=== PATIENT | female | born 1950 | race Caucasian/White ===

== ENCOUNTER → 2017-03-15 | Outpatient (CLI) | payer OTHER ==
[~2017-03-15] MED LIST: CALC-5 PO; FLUT0.0529; MULT-506 PO; OXYC1TAB3 PO; VITAMIN B12 PO
--- NOTE | 2017-03-15 12:25 | MAMMOGRAPHY REPORT ---
BILATERAL DIGITAL SCREENING MAMMOGRAM TOMOSYNTHESIS WITH CAD: 03/15/2017 CLINICAL HISTORY: Routine screening. Patient has no complaints. TECHNIQUE: Breast tomosynthesis in addition to standard 2D mammography was performed. Current study was also evaluated with a Computer Aided Detection (CAD) system. COMPARISON: Comparison is made to exams dated: 03/12/2016 mammogram, 03/08/2015 mammogram, 03/07/2014 mammogram, 02/01/2013 mammogram, 12/28/2011 mammogram, and 04/23/2011 mammogram - [facility]. BREAST COMPOSITION: The tissue of both breasts is almost entirely fatty. FINDINGS: There are stable benign calcifications in both breasts. There are stable intramammary ly mph nodes in the right upper outer quadrant. Minimal vascular calcification. No suspicious mass, a rchitectural distortion or cluster of microcalcifications is seen. IMPRESSION: ACR BI-RADS CATEGORY 2: BENIGN There is no mammographic evidence of malignancy. A 1 year screening mammogram is recommended. The p atient will receive written notification of the results. Approximately 10% of breast cancers are not detected with mammography. A negative mammographic repor t should not delay biopsy if a clinically suggestive mass is present. Kenzie Santana M.D. ay/:03/15/2017 09:00:50 Frame Coverer: Gabriella JOYNER)(Cornelia), [facility] letter sent: Normal 1/2 BI-RADS Code: ACR BI-RADS Category 2: Benign
== END | disposition home or self-care (01) ==
LOC: C.MAMM 06:30
PROVIDERS: ATTEND Family Medicine
DX: Z12.31 Encounter for screening mammogram for malignant neoplasm of breast (principal)

== ENCOUNTER 2024-02-09 04:48 | Inpatient (IN) ==
--- NOTE | 2024-02-09 05:06 | Emergency Department Note ---
History of Present Illness General Chief complaint: Fall Stated complaint: FALL - BACK PAIN Time Seen by Provider: 02/09/24 05:02 History of Present Illness Maximum Pain Intensity: 10 This 73-year-old female presents ER complaining of mid back pain after she tripped and fell yesterday. Palpation makes it worse nothing makes it better. Patient denies head injury, neck pain, loss conscious, low back pain, numbness, tingling, localized weakness. She was able to walk. Home Medications Medication Instructions Recorded Confirmed Type omeprazole 40 mg capsule,delayed 40 mg PO DAILY 02/09/24 02/09/24 History release oxycodone-acetaminophen 7.5 mg-325 1 tab PO Q6H PRN Pain, Severe 02/09/24 02/09/24 History mg tablet valacyclovir 500 mg tablet 500 mg PO DAILY 02/09/24 02/09/24 History Allergies Allergy/AdvReac Type Severity Reaction Status Date / Time aspirin AdvReac Unknown AVOID DUE Verified 12/26/18 08:10 TO GASTRIC BYPASS NSAIDS (Non-Steroidal AdvReac Unknown AVOID DUE Verified 12/26/18 08:10 Anti-Inflamma TO GASTRIC BYPASS Past Med/Surg History Medical History Obesity (BMI 30-39.9) History of radius fracture CASTED Hx of compression fracture of spine 2010 NO SURGERY JUST REST Chronic back pain Osteoarthritis IBS (irritable bowel syndrome) Hx of pancreatitis 08/2018 Heart disease Surgical History History of esophagogastroduodenoscopy (EGD) History of colonoscopy History of tonsillectomy and adenoidectomy Hx of section History of cochlear implant LEFT EAR History of endoscopic sinus surgery Hx of rotator cuff surgery RIGHT X 3 Hx of hernia repair VENTRAL HERNIA REPAIR S/P gastric bypass Social History Smoking Status: Never smoker Second Hand Exposure: No; Do You Dip or Chew Tobacco: No; Tobacco Cessation Education Requested by Patient: No Hx Alcohol Use: No Hx Substance Use: Yes Last Used Substance: Days (ago) Substance Use Type Other:: Vodka Preferred Language: Bengali Communication Ability: Effective Nutrition Assistant Required: No Beliefs That Will Affect Care: None and Rastafarian Current Living Situation: Alone Current Living Situation Comment: patient lives independently at home, mobile home with 2-3 steps to door Other Information That Helps Us Care for You: No Feels Safe at Home: No Is there a partner from a previous relationship who is making you feel unsafe now?: No Any Concerns about Your Family Situation: No Would You Like to Speak to Someone About Your Situation: No Safety Concerns: Feels Safe At This Time Assistive Devices: Wheelchair Review of Systems A total of 10 systems reviewed and were otherwise negative Physical Exam Vital Signs Vital Signs - 24 hr 02/09/24 04:52 02/09/24 05:02 Temperature 36.6 C Temperature Source Temporal Artery Scan Pulse Rate 101 H 103 H Respiratory Rate 20 Respiratory Effort / Characteristics Non-Labored Spontaneous Respiratory Depth Normal Blood Pressure 208/90 H Blood Pressure Mean 129 Pulse Oximetry 100 Oxygen Delivery Method Room Air Sepsis Recent Fever Within 48 Hours No Sepsis New/Unexplained Change in Mental Status N/A Sepsis Action Taken by Nursing No Action Required VITALS: Vitals are noted on the nurse's note and reviewed by myself. Vital signs stable. GENERAL: Pleasant female, in no acute distress, nondiaphoretic, well-developed well-nourished. SKIN: Capillary reflex less than 2 seconds. HEENT: Normocephalic. PERRLA. EOMI. Nares patent. Mucous membranes moist. Neck is supple without nuchal rigidity. HEART: Regular rate and rhythm LUNGS: Clear to auscultation bilaterally without wheezes, rales or rhonchi. No retractions or accessory muscle use. ABDOMEN: Positive bowel sounds x 4. Normal tympanic percussion. Soft, nontender, without masses or organomegaly. Gerard sign negative. No guarding or rebound tenderness. no CVA tenderness MUSCULOSKELETAL: No gross musculoskeletal defects. Mid thoracic tenderness. No lumbar tenderness. 5 / 5 strength throughout. NEURO: Patient was alert and oriented to person place and time. No focal neurological deficits. Course Administered Medications Enoxaparin Sodium (Enoxaparin Inj 40 Mg/0.4 Ml Syr) 40 mg SQ DAILY DIANA Stop: 03/10/24 10:29 Last Admin: 02/09/24 11:20 Dose: 40 mg Documented By: ROZINA Hydromorphone HCl (Hydromorphone Inj 0.5 Mg/0.5 Ml Syr) 0.5 mg IV Q4H PRN PRN Reason: Severe Pain (Scale 7, 8, 9,10) Stop: 02/23/24 10:06 Last Admin: 02/09/24 20:03 Dose: 0.5 mg Documented By: Admin: 02/09/24 15:33 Dose: 0.5 mg Documented By: Admin: 02/09/24 11:12 Dose: 0.5 mg Documented By: ROZINA Sodium Chloride (Nss) 1,000 mls @ 80 mls/hr IV .[id number] [facility] Stop: 02/09/24 22:36 Last Infusion: 02/09/24 21:49 Dose: Infused Documented By: Admin: 02/09/24 11:13 Dose: 80 mls/hr Documented By: ROZINA Multivitamins/Minerals (Cerovite Adv Formula Tab) 1 tab PO QAM [facility] Stop: 03/10/24 08:59 Last Admin: 02/09/24 11:20 Dose: 1 tab Documented By: ROZINA Oxycodone/Acetaminophen (Oxycodone/Apap 7.5/325mg Tab) 1 tab PO Q6H PRN PRN Reason: Pain, Severe Stop: 02/23/24 10:06 Last Admin: 02/09/24 21:48 Dose: 1 tab Documented By: Admin: 02/09/24 13:49 Dose: 1 tab Documented By: ROZINA Valacyclovir HCl (Valacyclovir Hcl 500 Mg Tablet) 500 mg PO DAILY [facility] Stop: 03/10/24 10:29 Last Admin: 02/09/24 11:19 Dose: 500 mg Documented By: ROZINA Discontinued Medications Hydromorphone HCl (Hydromorphone Inj 0.5 Mg/0.5 Ml Syr) 0.25 mg IV NOW STA Stop: 02/09/24 05:44 Last Admin: 02/09/24 05:53 Dose: 0.25 mg Documented By: ROMIE Hydromorphone HCl (Hydromorphone Inj 0.5 Mg/0.5 Ml Syr) 0.5 mg IV NOW STA Stop: 02/09/24 07:15 Last Admin: 02/09/24 07:26 Dose: 0.5 mg Documented By: AMANDA Promethazine HCl (Phenergan) 12.5 mg in 50.5 mls @ 202 mls/hr IV NOW STA Stop: 02/09/24 07:32 Last Infusion: 02/09/24 08:27 Dose: Infused Documented By: Admin: 02/09/24 07:25 Dose: 202 mls/hr Documented By: AMANDA Miscellaneous (Patient's Height &/Or Weight Needed) 1 each N/A Q2H DIANA Stop: 03/10/24 10:29 Last Admin: 02/09/24 15:42 Dose: Not Given Documented By: Admin: 02/09/24 13:50 Dose: 1 each Documented By: Admin: 02/09/24 13:50 Dose: 1 each Documented By: ROZINA Ondansetron HCl (Ondansetron Inj 2 Mg/Ml 2 Ml Vial) 4 mg IV NOW STA Stop: 02/09/24 05:38 Last Admin: 02/09/24 05:53 Dose: 4 mg Documented By: ROMIE Oxycodone HCl (Oxycodone Hcl Ir 5 Mg Tab (Immediate Release)) 5 mg PO NOW STA Stop: 02/09/24 05:04 Last Admin: 02/09/24 05:07 Dose: 5 mg Documented By: ROMIE Medical Decision Making Medical Records Attestation: I reviewed the patient's medical records. Home Medications Current Medication List: was personally reviewed by me Laboratory Data 02/09/24 05:49 02/09/24 05:49 Lab Results 02/09/24 Range/Units 05:49 WBC 6.91 (4.8-10.8) K/ul RBC 4.05 L (4.20-5.40) M/uL Hgb 12.5 (12.0-16.0) g/dl Hct 37.6 (37.0-47.0) % MCV 92.8 (80.0-100.0) fL MCH 30.9 (25.0-34.0) pg MCHC 33.2 (32.0-36.0) g/dL RDW Std Deviation 45.8 (36.4-46.3) fL RDW Coeff of Harinder 13.4 (11.5-14.5) % Plt Count 237 (130-400) K/uL MPV 10.1 (9.4-12.4) fL Immature Gran % (Auto) 0.3 % Neut % (Auto) 65.1 % Lymph % (Auto) 23.2 % [place] % (Auto) 11.0 % Eos % (Auto) 0.0 % Baso % (Auto) 0.4 % Neut # (Auto) 4.50 (1.40-6.50) K/uL Lymph # (Auto) 1.60 (1.20-3.40) K/uL [place] # (Auto) 0.76 H (0.11-0.59) K/uL Eos # (Auto) 0.00 (0.00-0.50) K/uL Baso # (Auto) 0.03 (0.00-0.20) K/uL Immature Gran # (Auto) 0.02 (0.01-0.20) K/uL Sodium 130 L (136-145) mmol/L Potassium 4.8 (3.5-5.1) mmol/L Chloride 98 (98-107) mmol/L Carbon Dioxide 23 (21-32) mmol/L Anion Gap 9 (3-11) BUN 18 (6-23) mg/dl Creatinine 0.92 (0.6-1.2) mg/dl Est Cr Clr Drug Dosing Not Reportable Est GFR ( Amer) 72.6 ml/min Est GFR (Non-Af Amer) 62.6 ml/min BUN/Creatinine Ratio 19.6 (10-20) Glucose 110 H (70-99(Fasting)) mg/dl Calcium 8.7 (8.6-10.3) mg/dl Total Bilirubin 0.7 (0.2-1.0) mg/dl AST 33 (13-39) U/L ALT 25 (7-52) U/L Alkaline Phosphatase 76 (34-104) U/L Total Creatine Kinase 153 (26-192) U/L Total Protein 7.4 (6.0-8.3) gm/dl Albumin 3.8 (3.4-5.0) gm/dl Globulin 3.6 (2.5-4.0) gm/dl Albumin/Globulin Ratio 1.1 (0.9-2) Imaging Data Attestation: I personally reviewed and interpreted this imaging study as follows: Radiologist's Impression: Thoracic Spine CT 02/09/24 05:03 Exam(s): CT T SPINE EXAM: CT Thoracic Spine Without Intravenous Contrast CLINICAL HISTORY: Reason for exam: fall, mid back pain. TECHNIQUE: Axial computed tomography images of the thoracic spine without intravenous contrast. Automated exposure control was utilized for the study. A dose lowering technique was utilized adhering to the principles of ALARA. COMPARISON: No relevant prior studies available. FINDINGS: Vertebrae: There is some accentuated kyphosis present within the thoracic spine. There is mild spondylotic spurring at multiple levels. There is diffuse demineralization. No acute fracture. Discs/spinal canal/neural foramina: No acute findings. No spinal canal stenosis. Soft tissues: Unremarkable. Vasculature: There are vascular calcifications present. Lungs: Some calcified and noncalcified nodules within the inferior right lung on about image #245 and 253 of series 2. Mediastinum: There is small hiatal hernia and postsurgical changes to the stomach/bowel. IMPRESSION: Degenerative and chronic change, no acute fracture seen. Electronically signed by: Moise Wang MD 02/09/24 05:39 AM MDM Narrative Prior records/ancillary studies reviewed. Triage Nursing notes reviewed. Additional history obtained from family. The patient's history was concerning for back pain. Differential diagnosis: Etiologies such as musculoskeletal, disc herniation, fracture, aortic disease, metastatic disease, cord compression, discitis, infection, renal colic, gastrointestinal, acute exacerbation of chronic back pain, sciatica, cauda equina, as well as others were entertained. Physical findings: As above. No focal neurologic findings noted. ER treatment provided: Oxy IR, Dilaudid, Zofran On reassessment the patient felt better. Diagnostics interpreted by me: The labs Independently Interpreted by myself revealed no worrisome leukocytosis, stable H&H Imaging studies: CT as above Consultation: A consultation was placed with hospitalist. The case was discussed and diagnostics were reviewed. Patient will be evaluated by the. This appears to be consistent with severe mid back pain. CT was negative for acute fracture. Patient still moderate amount of pain. She did fall. she was neurovascularly and neurologically ntact. Medicine was consulted and case discussed. She will be admitted to the medical service for further evaluation and workup. By the evaluation outlined above emergent etiologies such as fracture, aortic disease, metastatic disease, infection, renal colic, gastrointestinal, cord compression, cauda equina, as well as others were deemed relatively unlikely. The pt informed about the findings as listed above. All questions were answered and pleased with the treatment. The chart was completed utilizing [employer] Speech voice recognition software. Grammatical errors, random word insertions, pronoun errors, and incomplete sentences are an occassional consequence of this system due to software limitations, ambient noise, and hardware issues. Any formal questions or concerns about the content, text, or information contained within the body of this dictation should be directly addressed to the physician bakery assistant for clarification. Impression & Plan Intractable back pain, Fall Discharge Plan Visit Data Chief Complaint: Fall Stated Complaint: FALL - BACK PAIN ED Provider: Nahomy Valdes ED Midlevel Provider: Brandy Reeder Discharge Problem: Intractable back pain, Fall Patient Disposition: Admitted As Inpatient Condition: Good Discharge Instructions Interventions: ED Discharge Assessment Last Done: 02/09/24 09:50
[2024-02-09] MEDS: oxyCODONE HCL IR 5 MG TAB (IMMEDIATE RELEASE) PO STA (05:07)
[2024-02-09] MEDS ORDERED: MoRPHine SULFATE 4 MG/ML 1 ML CARP\\VIAL IV PRN (05:37)
--- NOTE | 2024-02-09 05:40 | CT Scan Report ---
Exam(s): CT T SPINE EXAM: CT Thoracic Spine Without Intravenous Contrast CLINICAL HISTORY: Reason for exam: fall, mid back pain. TECHNIQUE: Axial computed tomography images of the thoracic spine without intravenous contrast. Automated exposure control was utilized for the study. A dose lowering technique was utilized adhering to the principles of ALARA. COMPARISON: No relevant prior studies available. FINDINGS: Vertebrae: There is some accentuated kyphosis present within the thoracic spine. There is mild spondylotic spurring at multiple levels. There is diffuse demineralization. No acute fracture. Discs/spinal canal/neural foramina: No acute findings. No spinal canal stenosis. Soft tissues: Unremarkable. Vasculature: There are vascular calcifications present. Lungs: Some calcified and noncalcified nodules within the inferior right lung on about image #245 and 253 of series 2. Mediastinum: There is small hiatal hernia and postsurgical changes to the stomach/bowel. IMPRESSION: Degenerative and chronic change, no acute fracture seen. Electronically signed by: Moise Wang MD 02/09/24 05:39 AM
[2024-02-09] MEDS: ONDANSETRON INJ 2 MG/ML 2 ML VIAL IV STA (05:53)
[2024-02-09] MEDS: HYDROmorphone INJ 0.5 MG/0.5 ML SYR IV STA ×3 (05:53→23:21)
[2024-02-09 06:23] LABS: Alanine Aminotransferase 25 U/L (7-52); Albumin Globulin Ratio 1.1 (0.9-2); Albumin Level 3.8 gm/dl (3.4-5.0); Alkaline Phosphatase 76 U/L (34-104); Anion Gap 9 (3-11); Aspartate Aminotransferase 33 U/L (13-39); BUN Creatinine Ratio 19.6 (10-20); Bilirubin,Total 0.7 mg/dl (0.2-1.0); Blood Urea Nitrogen 18 mg/dl (6-23); Calcium 8.7 mg/dl (8.6-10.3); Carbon Dioxide 23 mmol/L (21-32); Chloride 98 mmol/L (98-107); Est GFR (African American) 72.6 ml/min; Est GFR (Non-African American) 62.6 ml/min; Globulin 3.6 gm/dl (2.5-4.0); Glucose 110 mg/dl (70-99(Fasting)); Potassium 4.8 mmol/L (3.5-5.1); Sodium 130 mmol/L (136-145); Total Protein 7.4 gm/dl (6.0-8.3)
[2024-02-09 06:24] LABS: Basophils # (auto) 0.03 K/uL (0.00-0.20); Basophils % (auto) 0.4 %; Hematocrit (blood only) 37.6 % (37.0-47.0); Hemoglobin 12.5 g/dl (12.0-16.0); Immature Granulocytes # (auto) 0.02 K/uL (0.01-0.20); Immature Granulocytes % (auto) 0.3 %; Lymphocytes % (auto) 23.2 %; Mean Corpuscular Hemoglobin 30.9 pg (25.0-34.0); Mean Corpuscular Hgb Conc 33.2 g/dL (32.0-36.0); Mean Corpuscular Volume 92.8 fL (80.0-100.0); Mean Platelet Volume 10.1 fL (9.4-12.4); Monocytes # (auto) 0.76 K/uL (0.11-0.59); Neutrophils % (auto) 65.1 %; Platelet Count 237 K/uL (130-400); RDW Coefficient of Variation 13.4 % (11.5-14.5); RDW Standard Deviation 45.8 fL (36.4-46.3); Red Blood Count 4.05 M/uL (4.20-5.40); White Blood Count 6.91 K/ul (4.8-10.8)
[2024-02-09] MEDS ORDERED: PROMETHAZINE HCL 12.5 MG in SODIUM CHLORIDE 0.9% 50 ML IV STA (07:14)
[2024-02-09] MEDS: PROMETHAZINE 12.5 MG/50.5 ML BAG IV STA (07:25)
--- NOTE | 2024-02-09 07:47 | History & Physical Report ---
Date of Service February 09, 2024 Assessment & Plan (1) Fall: Plan: 73-year-old female with past medical history significant for atrophy of pancreas, chronic rhinitis, obesity, GERD, degeneration of cervical disc, osteoporosis, iron deficiency anemia, status post bariatric surgery, history of COVID comes because of fall and mid lower back pain. Patient states she fell while going to bathroom yesterday in the morning 3:30 AM States she fell backward. Did not hit her head. No loss of consciousness. But she could not able to get up and she stayed on the floor for 6 hours. Later she could able to slowly crawled through her chair and sat in the chair. She thought the pain will get better but the pain was getting more severe so she came to the ER. CT of the thoracic spine is okay. Requesting for pain medications. Denies any headache. No dizziness. No blurred visions. No earache or runny nose. No sore throat. No cough. No fevers. No chest pain or shortness of breath. Feeling somewhat nauseous. No abdominal pain. Somewhat constipated. No incontinence of bowel or bladder. Sensations okay in lower extremity. Hemodynamics are okay. Fall Severe back pain Ambulatory dysfunction CT thoracic spine okay Pain control PT OT GERD PPI. DVT prophylaxis Lovenox Disposition Observation medical floor Full code History of Present Illness Chief Complaint: S/p fall, mid back pain Primary Care Provider: Marc Munguia MD 73-year-old female with past medical history significant for atrophy of pancreas, chronic rhinitis, obesity, GERD, degeneration of cervical disc, osteoporosis, iron deficiency anemia, status post bariatric surgery, history of COVID comes because of fall and mid lower back pain. Patient states she fell while going to bathroom yesterday in the morning 3:30 AM States she fell backward. Did not hit her head. No loss of consciousness. But she could not able to get up and she stayed on the floor for 6 hours. Later she could able to slowly crawled through her chair and sat in the chair. She thought the pain will get better but the pain was getting more severe so she came to the ER. CT of the thoracic spine is okay. Requesting for pain medications. Denies any headache. No dizziness. No blurred visions. No earache or runny nose. No sor e throat. No cough. No fevers. No chest pain or shortness of breath. Feeling somewhat nauseous. No abdominal pain. Somewhat constipated. No incontinence of bowel or bladder. Sensations okay in lower extremity. Hemodynamics are okay. Past medical history. As mentioned above. Past surgical history. . Colonoscopy. EGD. EGD with endoscopic ultrasound. Gastric bypass surgery. Incisional hernia repair. Laparoscopic cholecystectomy. Ligation of oviducts. Repair of ruptured rotator cuff right- side. Sinus surgery. Social history. No smoking. No alcohol use. No drug use. Family history. Mother has arthritis. Diabetes. CABG. Hyperlipidemia. Hypertension. Obesity. Father had prostate cancer. Small intestine cancer. Hyperlipidemia. Hypertension. Son has gout. Migraines. Sister has asthma. Allergies Allergy/AdvReac Type Severity Reaction Status Date / Time aspirin AdvReac Unknown AVOID DUE Verified 12/26/18 08:10 TO GASTRIC BYPASS NSAIDS (Non-Steroidal AdvReac Unknown AVOID DUE Verified 12/26/18 08:10 Anti-Inflamma TO GASTRIC BYPASS Home Medications Medication Instructions Recorded Confirmed Type omeprazole 40 mg capsule,delayed 40 mg PO DAILY 02/09/24 02/09/24 History release oxycodone-acetaminophen 7.5 mg-325 1 tab PO Q6H PRN Pain, Severe 02/09/24 02/09/24 History mg tablet valacyclovir 500 mg tablet 500 mg PO DAILY 02/09/24 02/09/24 History Past Med/Surg History Medical History Obesity (BMI 30-39.9) History of radius fracture CASTED Hx of compression fracture of spine 2010 NO SURGERY JUST REST Chronic back pain Osteoarthritis IBS (irritable bowel syndrome) Hx of pancreatitis 08/2018 Heart disease Surgical History History of esophagogastroduodenoscopy (EGD) History of colonoscopy History of tonsillectomy and adenoidectomy Hx of section History of cochlear implant LEFT EAR History of endoscopic sinus surgery Hx of rotator cuff surgery RIGHT X 3 Hx of hernia repair VENTRAL HERNIA REPAIR S/P gastric bypass Social History Smoking Status: Never smoker Second Hand Exposure: No; Do You Dip or Chew Tobacco: No; Hx Alcohol Use: No Hx Substance Use: No Preferred Language: Bengali Communication Ability: Effective Optometric Aide Required: No Beliefs That Will Affect Care: None Current Living Situation: Alone Current Living Situation Comment: patient lives independently at home, mobile home with 2-3 steps to door Feels Safe at Home: Yes Assistive Devices: Contacts, Denture - Upper, Denture - Lower and Glasses Review of Systems Review of Systems: All systems reviewed & are unremarkable except as noted in HPI & below Physical Exam Physical Exam: General- Not in distress Head- atraumatic Eyes- PERRL. ENT- oropharynx clear Neck- supple, no JVD. Lungs- clear to auscultation no wheezing or crackles. Heart- regular rhythm; no murmur, no gallop. Abdomen- normal bowel sounds, soft, nontender, no distension. Extremities- no pretibial edema, no erythema seen. Musculoskeletal b/l SLR test negative. Neuro- alert, oriented ; PERRL, no facial palsy; no dysarthria; moves extremities. Skin- warm & dry Results & Data Results & Data Vital Signs (Past 12 Hours) Vital Signs Temp Pulse Resp BP Pulse Ox O2 Del Method 02/09/24 05:02 103 H 02/09/24 04:52 36.6 C 101 H 20 208/90 H 100 Room Air Diagnostic Findings Laboratory Results WBC 6.91 K/ul (4.8-10.8) 02/09/24 05:49 RBC 4.05 M/uL (4.20-5.40) L 02/09/24 05:49 Hgb 12.5 g/dl (12.0-16.0) 02/09/24 05:49 Hct 37.6 % (37.0-47.0) 02/09/24 05:49 MCV 92.8 fL (80.0-100.0) 02/09/24 05:49 MCH 30.9 pg (25.0-34.0) 02/09/24 05:49 MCHC 33.2 g/dL (32.0-36.0) 02/09/24 05:49 RDW Std Deviation 45.8 fL (36.4-46.3) 02/09/24 05:49 RDW Coeff of Harinder 13.4 % (11.5-14.5) 02/09/24 05:49 Plt Count 237 K/uL (130-400) 02/09/24 05:49 MPV 10.1 fL (9.4-12.4) 02/09/24 05:49 Immature Gran % (Auto) 0.3 % 02/09/24 05:49 Neut % (Auto) 65.1 % 02/09/24 05:49 Lymph % (Auto) 23.2 % 02/09/24 05:49 Will % (Auto) 11.0 % 02/09/24 05:49 Eos % (Auto) 0.0 % 02/09/24 05:49 Baso % (Auto) 0.4 % 02/09/24 05:49 Neut # (Auto) 4.50 K/uL (1.40-6.50) 02/09/24 05:49 Lymph # (Auto) 1.60 K/uL (1.20-3.40) 02/09/24 05:49 Will # (Auto) 0.76 K/uL (0.11-0.59) H 02/09/24 05:49 Eos # (Auto) 0.00 K/uL (0.00-0.50) 02/09/24 05:49 Baso # (Auto) 0.03 K/uL (0.00-0.20) 02/09/24 05:49 Immature Gran # (Auto) 0.02 K/uL (0.01-0.20) 02/09/24 05:49 Sodium 130 mmol/L (136-145) L 02/09/24 05:49 Potassium 4.8 mmol/L (3.5-5.1) 02/09/24 05:49 Chloride 98 mmol/L (98-107) 02/09/24 05:49 Carbon Dioxide 23 mmol/L (21-32) 02/09/24 05:49 Anion Gap 9 (3-11) 02/09/24 05:49 BUN 18 mg/dl (6-23) 02/09/24 05:49 Creatinine 0.92 mg/dl (0.6-1.2) 02/09/24 05:49 Est Cr Clr Drug Dosing Not Reportable 02/09/24 05:49 Est GFR ( Amer) 72.6 ml/min 02/09/24 05:49 Est GFR (Non-Af Amer) 62.6 ml/min 02/09/24 05:49 BUN/Creatinine Ratio 19.6 (10-20) 02/09/24 05:49 Glucose 110 mg/dl (70-99(Fasting)) H 02/09/24 05:49 Calcium 8.7 mg/dl (8.6-10.3) 02/09/24 05:49 Total Bilirubin 0.7 mg/dl (0.2-1.0) 02/09/24 05:49 AST 33 U/L (13-39) 02/09/24 05:49 ALT 25 U/L (7-52) 02/09/24 05:49 Alkaline Phosphatase 76 U/L (34-104) 02/09/24 05:49 Total Protein 7.4 gm/dl (6.0-8.3) 02/09/24 05:49 Albumin 3.8 gm/dl (3.4-5.0) 02/09/24 05:49 Globulin 3.6 gm/dl (2.5-4.0) 02/09/24 05:49 Albumin/Globulin Ratio 1.1 (0.9-2) 02/09/24 05:[address] 02/09/24 05:03 Exam(s): CT T SPINE EXAM: CT Thoracic Spine Without Intravenous Contrast CLINICAL HISTORY: Reason for exam: fall, mid back pain. TECHNIQUE: Axial computed tomography images of the thoracic spine without intravenous contrast. Automated exposure control was utilized for the study. A dose lowering technique was utilized adhering to the principles of ALARA. COMPARISON: No relevant prior studies available. FINDINGS: Vertebrae: There is some accentuated kyphosis present within the thoracic spine. There is mild spondylotic spurring at multiple levels. There is diffuse demineralization. No acute fracture. Discs/spinal canal/neural foramina: No acute findings. No spinal canal stenosis. Soft tissues: Unremarkable. Vasculature: There are vascular calcifications present. Lungs: Some calcified and noncalcified nodules within the inferior right lung on about image #245 and 253 of series 2. Mediastinum: There is small hiatal hernia and postsurgical changes to the stomach/bowel. IMPRESSION: Degenerative and chronic change, no acute fracture seen. Electronically signed by: Moise Wang MD 02/09/24 05:39 AM Code Status & VTE Plan VTE Prophylaxis Plan VTE Prophylaxis will be ordered: Yes
[2024-02-09 09:01] LABS: Creatine Kinase 153 U/L (26-192)
[2024-02-09] MEDS: HYDROmorphone INJ 0.5 MG/0.5 ML SYR IV PRN (11:12)
[2024-02-09] MEDS: SODIUM CHLORIDE 0.9% 1,000 ML IV SCH (11:13)
[2024-02-09] MEDS: valACYclovir HCL 500 MG TABLET PO SCH (11:19)
[2024-02-09] MEDS: CEROVITE ADV FORMULA TAB PO SCH (11:20)
[2024-02-09] MEDS: ENOXAPARIN INJ 40 MG/0.4 ML SYR SQ SCH (11:20)
[2024-02-09] MEDS: oxyCODONE/APAP 7.5/325MG TAB PO PRN (13:49)
[2024-02-09] MEDS: Patient's HEIGHT &/or WEIGHT Needed SCH (13:50)
--- OUTSIDE RECORDS SUMMARY | 2024-02-09 14:27 | External Medical Summary | Summary of Care ---
Author Name Unknown Organization [facility] [address] [address] Phone [phone] Care Team Providers Care Station Examiner Name Role Phone Marc Munguia MD Primary Care Provider + Reason for Visit * Reason Comments Outpatient Testing Encounter Details Date Type Department Care Team (Late st Contact Info) Description 02/04/2024 1:30 PM EDT Laboratory Laboratory, [facility] [address] [facility] [place] [phone] BarberArabella alcazar [facility] [address] [facility] [address] BRBPR (bright red blood per rectum); H/O gastric bypass; Spinal stenosis of lumbar region, unspecified whether neurogenic claudication present Allergies Active Allergy Reactions Criticality Noted Date Comments Aspirin 04/10/2009 Not able to tolerate following gastric bypass surgery 2003 Morphine Abdominal pain,Diarrhea,Flushing,N ausea/vomiting 12/12/2020 Nsaids 04/10/2009 Unable to tolerate following gastric bypass surgery 2003 documented as of this encounter (statuses as of 02/04/2024) Medications Medication Sig Dispensed Refills Start Date End Date Status MULTIPLE VITAMINS/WOMENS PO TABS 2 daily 0 Active Cholecalciferol (VITAMIN D) 2000 UNITS Tablet Take 2,000 Units by mouth daily. 0 Active Cyanocobalamin (VITAMIN B12) 100 MCG TABS Take by mouth. 0 Active diphenhydrAMINE HCl 25 MG Oral Capsule Take 1 Capsule by mouth every 6 hours as needed for Itching. 0 Active Dicyclomine HCl 10 MG Oral Capsule (Bentyl) Take 1 Cap by mouth 4 times a day as needed (stomach cramp). For abdominal pain 120 Cap 5 12/12/2020 Active Diclofenac Sodium 1 % External Gel (Voltaren) APPLY 4 GM TOPICALLY TO AFFECTED AREA(S) FOUR TIMES A DAY NEEDED FOR OTHER (MUSCLE SORENESS) 900 g 3 04/30/2023 04/29/2024 Active valACYclovir HCl 500 MG Oral Tablet (Valtrex)Indications :Recurrent cold sores TAKE 1 TABLET BY MOUTH EVERY MORNING FOR COLD SORES 100 Tablet 3 04/30/2023 04/29/2024 Active Omeprazole 40 MG Oral Capsule Delayed Release (PriLOSEC)Indication s:Chronic gastritis without bleeding, unspecified gastritis type TAKE ONE CAPSULE BY MOUTH EVERY DAY 1 HOUR BEFORE THE FIRST MEAL OF THE DAY 90 Capsule 3 02/02/2023 03/04/2024 Active oxyCODONE-Acetaminop hen 7.5-325 MG Oral TabletIndications:De generation of cervical intervertebral disc,MEDICATION USE AGREEMENT,DDD (degenerative disc disease), lumbar,Bilateral hip pain Take 1 Tablet by mouth every 6 hours as needed for Pain, Severe. 120 Tablet 0 01/17/2024 Active Ondansetron HCl 4 MG Oral Tablet (Zofran) TAKE 1 TABLET BY MOUTH EVERY 6 HOURS NEEDED FOR NAUSEA 90 Tablet 2 01/30/2024 01/29/2025 Active Hydrocortisone 2.5 % External Cream Administer into the rectum 2 times a day. For 2 weeks 28 g 0 02/04/2024 Active documented as of this encounter (statuses as of 02/04/2024) Active Problems Problem Noted Date Diagnosed Date Body mass index (BMI) of 40.0 to 44.9 in adult 0 02/04/2024 Atrophy of pancreas 02/04/2024 History of 2019 novel coronavirus disease (COVID -19) 12/18/2022 Obesity, morbid (more than 1 00 lbs over ideal weight or BMI > 40) 12/18/2022 Iron deficiency anemia 04/04/2019 Gastroesophageal reflux disease without esophagi tis 03/22/2019 Chronic rhinitis 10/05/2017 Age-related osteoporosis wit hout current pathological fracture 03/17/2016 Overview: 02/28 DexA -2.7. +mult fracture. Did prolia treatments for a time H/O gastric bypass 03/06/2016 Overview: Duplicate. Well adult exam 03/06/2016 Overview: ELECTS MAMMO Q2y. Daughter-Haley Navarro. 04/02 refer IV iron. 01/02 EGD & colonoscopy WNL path pend: mild chronic gastritis. 05/01 HIROC_start Prolia MEDICATION USE AGREEMENT 09/16/2012 Overview: For chronic pain meds for vertebral fx., AVN hip Lumbar spinal stenosis 06/29/2011 Overview: Lumbar BMI 35-39 ISOLATED (SEE ACTUAL BMI) 04/28/2010 Overview: Per Obesity Protocol, #19 Degeneration of cervical intervertebral disc Bariatric surgery status documented as of this encounter (statuses as of 02/04/2024) Resolved Problems Problem Noted Date Diagnosed Date Resolved Date Body mass index (BMI) of 40. 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 History of pathological fracture of vertebra 1 03/18/2020 Overview: T12, L2 and L5 Historical. Fracture of forearm, closed 06/13/2011 08/03/2011 Overview: Seeing Dr. Linares for tx Chronic pain syndrome 2009 Overview: Saw Dr. 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 Backache 09/14/2018 Pain in joint involving forearm 10/05/2017 documented as of this encounter (statuses as of 02/04/2024) Immunizations Name Administration Dates Next Due COVID-19 mRNA, LNP-s, No Pre serve, 2-Dose Series (Moderna) 01/22/2021,12/25/2020 COVID-19, mRNA, LNP-s, PF, B ooster, 100mcg/0.5mg (Moderna) 10/14/2021 Pneumococcal Conjugate Vacc, 13 Valent (Prevnar) 10/05/2017 Pneumococcal Polysaccharide PPV23 (Pneumovax) 10/14/2018 Season Influenza, Quad, PF, Adjuvanted, 65+ Yrs, IM (FLUAD) 07/24/2020 Seasonal Influenza, PF, 6 M & above, IM , (FluLaval or Fluzone) 07/14/2019,07/25/2018 Seasonal Influenza, Quadriva lent Hd (Fluzone Hd) 07/27/2023,07/27/2022,07/22/2021 Seasonal Influenza, Quadriva lent, No Preserve, IM 07/27/2017 Seasonal Influenza, Split, I IV3, With Preserve, Inj 08/06/2016,08/14/2015,08/13/2014,09/15,08/26/2012,08/10/2011,08/15/2010 ,09/02/2009 TDAP (age 10 and older)(Boostrix) 04/02/2017 TDAP (age 11 and older)(Adacel) 06/19/2009 Varicella Zoster Vaccine (Adult) 03/02/2014 Zoster Vaccine Recombinant (Shingrix) 09/23/2018 ,06/15/2018 documented as of this encounter Social History Tobacco Use Types Packs/Day Years Used Date Smoking Tobacco: Never Smokeless Tobacco: Never Alcohol Use Standard Drinks/Week Comments No 0 (1 standard drink = 0.6 oz pur e alcohol) PHQ-2 Answer Date Recorded PHQ Adult Total Score 0 12/18/2022 Hunger Vital Sign Answer Date Recorded Within the past 12 months, y ou worried that your food would run out before you got the money to buy more. Never true 12/14/19 23 Within the past 12 months, t he food you bought just didn't last and you didn't have money to get more. Never true 12/14/2022 Sex and Gender Information Value Date Recorded Sex Assigned at Female 04/02/2022 10:31 AM EDT Gender Identity Female 04/02/2022 10:31 AM EDT Sexual Orientation Straight 04/02/2022 10 :31 AM EDT Job Start Date Occupation Industry Not on file Not on file Not on file documented as of this encounter Plan of Treatment Upcoming Encounters Date Type Department Care Team (Late st Contact Info) Description 02/10/2024 1:00 PM EDT Imaging Radiology [facility] [facility] [address] [place] [address] 02/16/2024 11:00 AM EDT Office Visit General Surgery, [facility] [address] [place] [address] Isaac Sal MD [address] [place] [address] 02/07/2025 12:00 PM EDT Office Visit Family Practice [facility] [address] [place] [id number] Marc Munguia MD [address] [address] Pending Results Name Type Priority Associated Diagnoses Date /Time CBC WITH WBC DIFFERENTIAL AND ANEMIA REFLEX WORKUP Lab Routine BRBPR (bright red blood per rectum) 02/04/2024 1:35 PM EDT 25-HYDROXY VITAMIN D Lab Routine H/O gastric bypass 02/04/2024 1:35 PM EDT ZINC Lab Routine H/O gastric bypass 02/04/2024 1:35 PM EDT IRON SCREEN, INCLUDING TIBC Lab Routine H/O gastric bypass 02/04/2024 1:35 PM EDT FERRITIN Lab Routine H/O gastric bypass 02/04/2024 1:35 PM EDT ANEMIA CBC Lab Routine BRBPR (bright red blood per rectum) 02/04/2024 1:35 PM EDT DIFFERENTIAL, AUTOMATED Lab Routine BRBPR (bright red blood per rectum) 02/04/2024 1:35 PM EDT ANEMIA REFLEX CHEMISTRY HOLD Lab Routine BRBPR (bright red blood per rectum) 02/04/2024 1:35 PM EDT PAIN MANAGEMENT DRUG PANEL, URINE W/ INTERPRETATION Lab Routine Spinal stenosis of lumbar region, unspecified whether neurogenic claudication present 02/04/2024 1:37 PM EDT Scheduled Procedures Name Priority Associated Diagnoses Date/Ti me COLONOSCOPY FLEXIBLE PROXIMA L DIAGNOSTIC Recall Encounter for screening colonoscopy Health Maintenance Due Date Last Done Comments Cologuard 1997 Fecal Occult Blood Test 1997 Sigmoidoscopy 1997 DXA Scan 05/05/2020 05/05/2018, 03/12/2016 COVID-19 Vaccine ( season) 2023 10/14/2021, 01/22/2021, 12/25/2020 Mammogram 05/10/2024 05/10/2023, 04/16, 04/15/2021, Additional history exists Depression Screening 02/03/2025 02/04/2024, 04/02/2017 (Declined) DTaP,Tdap,and Td Vaccines (3 - Td or Tdap) 04/02/2027 04/02/2017, 06/19/2009 Lipid Panel 07/16/2027 07/16/2022, 02/14, 10/22/2011, Additional history exists Colonoscopy 12/17/2027 12/17/2017, 12/2017, 11/25/2007 Colorectal Cancer Screening 12/17/2027 Zoster Vaccines Completed 09/23/2018, 11/2017, 03/02/2014 Pneumococcal Vaccine: 65+ Years Completed 10/14/2018, 10/05/2017 VITAMIN D LEVEL ONCE IN A LIFETIME-USE SMARTSET# [id number] Completed 07/16/2022, 09/22/2019, 03/22/2019, Additional history exists Influenza Vaccine (FLU shot) Completed 07/27/2023, 07/27/2022, 07/22/2021, Additional history exists Albumin/Creatinine Ratio Discontinued 023, 10/02/2022, 03/22/2019 GARDASIL-HPV IMMUNIZATION SERIES Aged Out No longer eligible based on patient's age to complete this topic Hepatitis B Aged Out No longer eligi ble based on patient's age to complete this topic MENINGOCOCCAL (MENACTRA/MENVEO) Aged Out No longer eligible based on patient's age to complete this topic documented as of this encounter Medical Devices Not on filedocumented as of this encounter Visit Diagnoses Diagnosis BRBPR (bright red blood per rectum) Hemorrhage of rectum and anus H/O gastric bypass Bariatric surgery status Spinal stenosis of lumbar region, unspecified whether neurogenic claudication present documented in this encounter Care Teams Station Examiner Relationship Specialty Start Date End Date Marc Munguia MD [address] [facility] [place] [address] PCP - General Family Medicine 03/06/16 documented as of this encounter
--- OUTSIDE RECORDS SUMMARY | 2024-02-09 14:27 | External Medical Summary | Summary of Care ---
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 Name Role Phone Marc Munguia MD Primary Care Provider + Reason for Referral * Evaluate & Treat - Unlimited Visits (Within 10 days (routine)) - Authorized Specialty Diagnoses / Procedures Referred By Bela moreno Referred To Contact General Surgery Diagnoses Chronic RLQ pain Marc Munguia MD [address] [place] [address] Sebas Mckeon MD [address] [place] [address] Referral ID Status Reason Start Date Expiration Date Visits Requested Visits Authorized [id number] Authorized Specialty Services Required 02/04/2024 999 999 Question Answer Referral Priority Within 10 days (routine) Where should this appointment be scheduled? [facility] What condition is the patient being seen for? General Surgery Conditions What condition is the patient being seen for? Hernia (excluding Hiatal) Comments RLQ twisting pain, CT ordered, unclear if new hernia/ ?adhesions, pleaseeval/tx. * Precert (Within 24 hrs (call dept; emergent)) - Pending Review Specialty Diagnoses / Procedures Referred By Bela moreno Referred To Contact Radiology Diagnoses Chronic RLQ pain Procedures CT ABD/PELVIS W IV AND W ORAL CONTRAST Marc Munguia MD [address] [place] [address] Referral ID Status Reason Start Date Expiration Date V isits Requested Visits Authorized [id number] Pending Review 02/04/2024 999 999 Reason for Visit * Reason Comments Physical-Exam Yearly physical Encounter Details Date Type Department Care Team (Late st Contact Info) Description 02/04/2024 12:20 PM EDT Office Visit [facility] [address] [place] [address] Marc Munguia MD [address] [place] [id number] Well adult exam*; Risk and functional assessment; Obesity, morbid (more than 100 lbs over ideal weight or BMI > 40) ([facility]); Body mass index (BMI) of 40.0 to 44.9 in adult ([facility]); Gastroesophageal reflux disease without esophagitis; Atrophy of pancreas; Age-related osteoporosis without current pathological fracture; BRBPR (bright red blood per rectum); H/O gastric bypass; Chronic RLQ pain; Spinal stenosis of lumbar region, unspecified whether neurogenic claudication present; Palpitations Allergies Active Allergy Reactions Criticality Noted Date Comments Aspirin 04/10/2009 Not able to tolerate following gastric bypass surgery 2003 Morphine Abdominal pain,Diarrhea,Flushing,N ausea/vomiting 12/12/2020 Nsaids 04/10/2009 Unable to tolerate following gastric bypass surgery 2004 documented as of this encounter (statuses as [...] OTHER (MUSCLE SORENESS) 900 g 3 04/30/2023 4 Active valACYclovir HCl 500 MG Oral Tablet (Valtrex)Indication s:Recurrent cold sores TAKE 1 TABLET BY MOUTH EVERY MORNING FOR COLD SORES 100 Tablet 3 04/30/2023 4 Active Omeprazole 40 MG Oral Capsule Delayed Release (PriLOSEC)Indicatio ns:Chronic gastritis without bleeding, unspecified gastritis type TAKE ONE CAPSULE BY MOUTH EVERY DAY 1 HOUR BEFORE THE FIRST MEAL OF THE DAY 90 Capsule 3 02/02/2023 4 Active oxyCODONE-Acetamino phen 7.5-325 MG Oral TabletIndications:D egeneration of cervical intervertebral disc,MEDICATION USE AGREEMENT,DDD (degenerative disc disease), lumbar,Bilateral hip pain Take 1 Tablet by mouth every 6 hours as needed for Pain, Severe. 120 Tablet 0 01/17/2024 Active Ondansetron HCl 4 MG Oral Tablet (Zofran) TAKE 1 TABLET BY MOUTH EVERY 6 HOURS NEEDED FOR NAUSEA 90 Tablet 2 01/30/2024 5 Active Hydrocortisone 2.5 % External Cream Administer into the rectum 2 times a day. For 2 weeks 28 g 0 02/04/2024 Active fluticasone (FLONASE) 50 MCG/ACT nasal sprayIndications:Ch ronic rhinitis USE TWO SPRAY(S) IN EACH NOSTRIL ONCE DAILY 16 g 11 06/03/2017 4 Discontinue d(Medicatio n List Clean Up) documented as of this encounter (statuses as [...] Date Smoking Tobacco: Never Smokeless Tobacco: Never Tobacco Cessation:Counseling Given: Not Answered Alcohol Use Standard Drinks/Week Comments No 0 [...] on file documented as of this encounter Last Filed Vital Signs Vital Sign Reading Time Taken Comments Blood Pressure 110/72 02/04/2024 12:55 PM EDT Pulse 65 02/04/2024 12:40 PM EDT Temperature - - Respiratory Rate 18 02/04/2024 12:40 PM EDT Oxygen Saturation 99% 02/04/2024 12:40 PM EDT Inhaled Oxygen Concentration - - Weight 118.6 kg (261 lb 8 oz) 02/04/2024 12:40 P M EDT Height 167 cm (5' 5.75") 02/04/2024 12:40 PM EDT Body Mass Index 42.53 02/04/2024 12:40 PM EDT documented in this encounter Patient Instructions * Patient Instructions* Mita Faustin LPN - 02/04/2024 12:39 PM EDT Patient Instructions - Fall Prevention (This education is for all patients over 65 regardless of symptoms) Remember to take your current medications as prescribed. In order to prevent falls, you are encouraged to: Exercise Utilize assistive/adaptive devices Avoid multifocal lenses when walking Avoid hazards in home Maintain a regular toileting schedule Any questions please contact our office. Preventing Falls in the Home (This education is for all patients over 65 regardless of symptoms) As you get older, falls are more likely. Thats because your reaction time slows. Your muscles and joints may also get stiffer, making them less flexible. Illness, medications, and vision changes can also affect your balance. A fall could leave you unable to live on your own. To make your home safer, follow these tips: Floors Put nonskid pads under area rugs Remove throw rugs Replace worn floor coverings Tack carpets firmly to each step on carpeted stairs. Put nonskid strips on the edges of uncarpeted stairs Keep floors and stairs free of clutter and cords Arrange furniture so there are clear pathways Clean up any spills right away Bathrooms Install grab bars in the tub or shower Apply nonskid strips or put a nonskid rubber mat in the tub or shower Sit on a bath chair to bathe Use bathmats with nonskid backing Lighting Keep a flashlight in each room Put a nightlight along the pathway between the bedroom and the bathroom Pearl Patient Education Copyright 2008 - 2010 Pearl except where otherwise noted Preventing Falls: Exercises to Improve Balance, Flexibility, Strength, and Staying Power (This education is for all patients over 65 regardless of symptoms) Certain types of exercises may help make you less likely to fall. Try the ones below. Or do other exercises that your healthcare provider suggests. Depending on your health, you may need to start slowly. Dont let that stop you. Even small amounts of exercise can help you. Be sure to talk to yourhealthcare provider before starting any exercise program. Improve Balance Many types of exercise can help improve balance. Alfonso chi and yoga are good examples. Heres another one to try. You can do it anytime and almost anywhere. Stand next to a counter or solid support. Push yourself up onto your tiptoes. Hold for 5 seconds. If you start to lose your balance, hold on to the counter. Rest and repeat 5 times. Work up to holding for 20 to 30 seconds, if you can. Increase Flexibility Being more flexible makes it easier for you to move around safely. Try exercises like the seated hamstring stretch. Sit in a chair and put one foot on a stool. Straighten your leg and reach with both hands down either side of your leg. Reach as far down your leg as you can. Hold for about 20 seconds. Go back to the starting position. Then repeat 5 times. Switch legs. Build Strength Resistance exercises help build strength. You can do them without equipment. Or you can use weights, elastic bands, or special machines. One such exercise is called the biceps curl. You can hold a 1 pound weight or even a can of soup. Do this exercise at least 3 times a week. Strive for everyday. Sit up straight in a chair. Keep your elbow close to your body and your wrist straight. Bend your arm, moving your hand up to your shoulder. Then slowly lower your arm. Repeat 5 times. Switch to the other arm. Build Your Staying Power Aerobic exercises make your heart and lungs stronger so you can keep moving longer. Walking and swimming are two of the best types of exercises you can do. Using a stationary bike is great, too. Find an aerobic exercise that you enjoy. Start slowly and build up. Even 5 minutes is helpful. Aimfor a goal of 30 minutes, at least 3 times a week. You dont have to do 30 minutes in one session. Break it up and walk a little throughout the day. More Helpful Tips Start easy. Slowly work up to doing more. Talk with your healthcare provider about the best exercises for you. Call senior centers or health clubs about exercise programs. If needed, have a family member watch you walk every so often to check your stability. Exercise with a friend. Choose an activity you both enjoy. Try exercises that you can do anytime, anywhere. Here are two examples. Have someone with you when you first try these: Practice walking by placing one foot right in front of the other. Stand up and sit down 10 times. Repeat this throughout the day. Pearl Patient Education Copyright 2008 - 2010 Pearl except where otherwise noted. Preventing Falls: Moving Safely Using a Cane or Walker (This education is for all patients over 65 regardless of symptoms) Keep the cane away from your feet so you dont trip. A walking aid, such as a cane or walker, can help you stay more independent and avoid falls. Remember to keep your walking aid within easy reach when youre in a chair or in bed. And learn how to use it safely so you dont injure yourself. Using a Cane If you have a stronger side, hold the cane on that side. Get your balance. Move the cane and your weaker leg forward. Support your weight on both the cane and your weaker side. Step with your stronger leg. Start again from step 1. If youre using a folding walker, be sure you know how to lock it open. Check that its locked open before each use. Using a Walker Roll the walker (or lift it, if youre using one without wheels) forward about 12 inches. Step forward with your weaker leg first. Use the walker to help keep your balance. Bring your other foot forward to the center of the walker. Start again from step 1. Helpful Tips Check with your healthcare provider about the right walking aid to use. Ask about a walker with a seat attached. Check the tips of your cane or walker to make sure they have nonskid covers. Move slowly from room to room. Dont hewitt. Sit down to get dressed. Use a glynn pack or backpack to keep your hands free. Get help for jobs that mean climbing, even on a stepstool. [employer] Patient Education Copyright 2008 - 2010 Pearl except where otherwise noted. Urinary Incontinence Plan of Care Documentation: (This education is for all patients over 65 regardless of symptoms) Current medications reconciled. Patient encouraged to: Practice kegal exercises Provide education materials Use the restroom every 2 hours throughout the day Limit caffeine, alcohol, spicy foods and acidic foods Keep a bladder diary Limit fluid intake 3-4 hours before bed Lose weight Prevent constipation Take fluid pills at a time when you can get to the bathroom quickly Control sugar better if diabetic Limit fluid intake to 60 oz. per day Wear support stockings (TEDs)if you have edema Mita Faustin LPN 02/04/2024 Kegel Exercises Kegel exercises dont require special clothing or equipment. Theyre easy to learn and simple to do. And if you do them right, no one can tell youre doing them, so they can be done almost anywhere. Your doctor, nurse, or physical therapist can answer any questions you have and help you get started. A Weak Pelvic Floor The pelvic floor muscles may weaken due to aging, and vaginal childbirth, injury, surgery, chronic cough, or lack of exercise. If the pelvic floor is weak, your bladder and other pelvic organs may sag out of place. The urethra may also open too easily and allow urine to leak out. Kegel exercises can help you strengthen your pelvic floor muscles so they can better support the pelvic organs and control urine flow. How Kegel Exercises Are Done Try each of the Kegel exercises described below. When youre doing them, try not to move your leg, buttock, or stomach muscles. While youre urinating, try to stop the flow of urine. Start and stop it as often as you can. Contract as if you were stopping your urine stream, but do it when youre not urinating. Tighten your rectum as if trying not to pass gas. Contract your anus, but dont move your buttocks. Helpful Hints Do your Kegels as often as you can. The more you do them, the faster youll feel the results. Pick an activity you do often as a reminder. For instance, do your Kegels every time you sit down. Tighten your pelvic floor before you sneeze, get up from a chair, cough, laugh, or lift. This protects your pelvic floor from injury and can help prevent urine leakage. Try to hold each Kegel for a slow count to five. You probably wont be able to hold them for thatlong at first, but keep practicing. It will get easier as your pelvic floor gets stronger. Eventually, special weights that you place in your vagina may be recommended to help make your Kegels even more effective. Pearl Patient Education Copyright 2009 - 2010 Pearl except where otherwise noted. Here are some helpful tips for your urinary incontinence: (This education is for all patients over 65 regardless of symptoms) Practice Kegel exercises Use the restroom every 2 hours throughout the day Limit caffeine, alcohol, spicy foods, and acidic foods Keep a bladder diary Limit fluid intake 3-4 hours before bed Lose weight Prevent constipation Take fluid pills at a time when can get to the bathroom quickly Control sugar better if diabetic Limit fluid intake to 60 oz. per day Any questions, please feel free to contact our office. documented in this encounter Progress Notes * Marc Munguia MD - 02/04/2024 2:09 PM EDT SUBJECTIVE: Siena Gomez is a 73 year old female here for Physical-Exam (Yearly physical) . Here for CPE Several issues. Chronic low back pain is somewhat well controlled with her current oxycodone. Allows her to do ADLs. She has been having right lower abdominal pain off and on for several months. Maybe getting a little bit worse. Could be even going on as long as a year she thinks. Worse with bending or twisting or changing positions. It can really grab her and make it very painful at times. Typically better sitting still. No change with bowel movements. She typically has soft movements. She notes about 2 months of intermittent bright red blood per rectum with bowel movement were sometimes he having leaking some in her underwear at night. She is sure that it is from her rectum. It ispainless. She does have history of external hemorrhoids. She notes on her hands a swelling of her left thumb joint that started about a month ago but has shrunk in his LEs painful since then. No trauma. She notes that her right 3rd fingernail is pitted. Nonew change in color. No trauma known. She notes over several months she has had intermittent palpitations can feel like it races for several minutes at a time. No chest pain or shortness of breath. Sometimes skips beats. No fever no chills no chest pain no new nausea vomiting diarrhea constipation. She does have history gastric bypass in several hernia surgeries. patient has experienced improvement in pain control and level of functioning well on oxycodone. The narcotic will be used in combination with tolerated non pharmacologic therapy and non opiate pharacologic therapy and I have reviewed her medical record documentation for urine drug screening testing for listed and illicit drugs with the potential for abuse consistent with prescribed controlled substances. Patient has tried and failed non-drug pain management modalities and non-opioid drugs, acetaminophen, nsaids, etc. It will be used in combination with tolerated non drug therapies and non-opioid meds. Patient was assessed for potential risk of misuse, abuse, and addiction based on family and social history. Patient was counseled regarding potential side effects of opioids including risk or misuse, abuse, addiction. Patient was assessed for recent (w/in 60d) opioid use. Patient was evaluated for risk factors for opioid related harm. If identified to be at high risk for Opioid -related harm, the prescribed considered naloxone. Marc Munguia MD ROS: Negative except above. Past Medical History: Diagnosis Date Avascular necrosis of hip (HCC) 03/06/2016 Bariatric surgery status Calculus of kidney 10/2008 Chronic pain syndrome In past was seeing Dr. 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 Swelling, mass, or lump in chest likely scar tissue from prior PNA - unchanging Past Surgical History: Procedure Laterality Date DELIVERY COLONOSCOPY, DIAGNOSTIC (RECTUM) 12/17/2017 diverticulosis, fair prep, repeat 10 yrs/COLONOSCOPY FLEXIBLE PROXIMAL DIAGNOSTIC performed by Scar Greenberg MD at [facility] EGD, FLEXIBLE, DIAGNOSTIC 12/17/2017 mild - mod inflammation on bx/ESOPHAGOGASTRODUODENOSCOPY (EGD), FLEXIBLE, TRANSORAL, DIAGNOSTIC performed by Scar Greenberg MD at [facility] EGD, W/ENDOSCOPIC US 10/31/2018 normal bx/ESOPHAGOGASTRODUODENOSCOPY (EGD), FLEXIBLE, TRANSORAL, ENDOSCOPIC ULTRASOUND performed byRuperto Brewer DO at [facility] GASTRIC BYPASS FOR OBESITY 2004 at [place] INCISIONAL HERNIA REPAIR, LAP, REDUCIBLE 2008 LAPAROSCOPY; CHOLECYSTECTOMY 12/26/2018 12/26/2018 laparoscopic cholecystectomy [facility] DR. Sebas Mckeon LIGATE/CUT OVIDUCT(S) REBUILD EARDRUM STRUCTURES W/PROSTH Left 11/26/2011 [place]. [place] [facility] [place]ONSILS & ADENOIDS, UNDER 12 REPAIR RUPTURED ROTATOR CUFF, CHRON Right Required 3 procedures SHOULDER SURGERY PROCEDURE NEC Right 2006 x3 for frozen shoulder SINUS SURGERY PROCEDURE NEC 2001 Social History Socioeconomic History Marital status: Spouse name: Not on file Number of children: Not on file Years of education: Not on file Highest education level: Not on file Occupational History Occupation: retired. [facility] [employer]. 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 3 adult kids. 2 sons, 1 daughter. 6 grandkids Other Topics Concern Not on file Social History Narrative Likes-time with family, grandkids. [place] in summer. Social Determinants of Health Financial Resource Strain: Not on file Food Insecurity: No Food Insecurity (01/21/2024) Hunger Vital Sign Worried About Running Out of Food in the Last Year: Never true Ran Out of Food in the Last Year: Never true Transportation Needs: Not on file Physical Activity: Not on file Stress: Not on file Social Connections: Not on file Intimate Partner Violence: Not on file Housing Stability: Not on file Family History Problem Relation Age of Onset Heart Disorder Mother 70 CABG--. 12/02 Diabetes Mother Hypertension Mother Other (Hyperlipidemia) Mother Heart Disorder Mother Arthritis Mother Diabetes Mother Obesity Mother Heart Disorder Father 85 / 2012 Hypertension Father 2012 Cancer Father 87 Prostate, colon-/ 2012/small intestine cancer Other (Hyperlipidemia) Father Heart Disorder Grandmother (Maternal) Diabetes Grandmother (Maternal) Heart Disorder Grandfather (Maternal) Heart Disorder Brother 54 CABG-non smoker. stent 57 Hypertension Mother Hypertension Brother 57 stroke 2012-smoked Asthma Sister another sister has it also Obesity Daughter anxiety, migraines Other (migraines) Son Other (gout) Son Breast Cancer Aunt (Maternal) Current Outpatient Medications Medication Sig Dispense Refill MULTIPLE VITAMINS/WOMENS PO TABS 2 daily Cholecalciferol (VITAMIN D) 2000 UNITS Tablet Take 2,000 Units by mouth daily. Cyanocobalamin (VITAMIN B12) 100 MCG TABS Take by mouth. diphenhydrAMINE HCl 25 MG Oral Capsule Take 1 Capsule by mouth every 6 hours as needed for Itching. Dicyclomine HCl 10 MG Oral Capsule (Bentyl) Take 1 Cap by mouth 4 times a day as needed (stomach cramp). For abdominal pain 120 Cap 5 Diclofenac Sodium 1 % External Gel (Voltaren) APPLY 4 GM TOPICALLY TO AFFECTED AREA(S) FOUR TIMES ADAY NEEDED FOR OTHER (MUSCLE SORENESS) 900 g 3 valACYclovir HCl 500 MG Oral Tablet (Valtrex) TAKE 1 TABLET BY MOUTH EVERY MORNING FOR COLD SORES 100 Tablet 3 Omeprazole 40 MG Oral Capsule Delayed Release (PriLOSEC) TAKE ONE CAPSULE BY MOUTH EVERY DAY 1 HOURBEFORE THE FIRST MEAL OF THE DAY 90 Capsule 3 oxyCODONE-Acetaminophen 7.5-325 MG Oral Tablet Take 1 Tablet by mouth every 6 hours as needed for Pain, Severe. 120 Tablet 0 Ondansetron HCl 4 MG Oral Tablet (Zofran) TAKE 1 TABLET BY MOUTH EVERY 6 HOURS NEEDED FOR [id number] Tablet 2 Hydrocortisone 2.5 % External Cream Administer into the rectum 2 times a day. For 2 weeks 28 g 0 No current facility-administered medications for this visit. Physical: BP 110/72 | Pulse 65 | Resp 18 | Ht 1.67 m (5' 5.75") | Wt 118.6 kg (261 lb 8 oz) | SpO2 99% | BMI 42.53 kg/m | BSA 2.35 m General-No apparent Distress Head, Eyes, Ears, Nose, Throat--Normocephalic, atraumatic Neck-Supple Lymph-no lymphadenopathy Lungs-Clear to Auscultation bilaterally Cardiovascular--Regular rate & Rhythm, +s1, s2, no murmur Abdomen-soft,RLQ tender, nondistended + bowel sounds no rebound Extremities--no edema Rectal +ext hemorrhoids, non bleeding. Internal NAV--no masses. +chap by Mita Faustin LVN Neuro-alert & oriented x3 (Z00.00) Well adult exam (primary encounter diagnosis) Plan: counseled on diet/exercise Colon, mammo UTD Labs reviewed/ordered (Z13.9) Risk and functional assessment Plan: (E66.01) Obesity, morbid (more than 100 lbs over ideal weight or BMI > 40) ([facility]) Plan: counseled on diet/exercise (Z68.41) Body mass index (BMI) of 40.0 to 44.9 in adult ([facility]) Plan: as above (K21.9) Gastroesophageal reflux disease without esophagitis Plan: cont mgmt (K86.89) Atrophy of pancreas Plan: chornic (M81.0) Age-related osteoporosis without current pathological fracture Plan: mgmt rheum (K62.5) BRBPR (bright red blood per rectum) Plan: CBC WITH WBC DIFFERENTIAL AND ANEMIA REFLEX WORKUP Suspect internal hemorrhoid. Trial anusol x2 weeks. Takes colace, stools soft. If persistswill needcolonoscopy (Z98.84) H/O gastric bypass Plan: 25-HYDROXY VITAMIN D, ZINC, IRON SCREEN, INCLUDING TIBC, FERRITIN (R10.31, G89.29) Chronic RLQ pain Plan: CT ABD/PELVIS W IV AND W ORAL CONTRAST, SURGERY REFERRAL OP Unclear etiology--ck for hernia, mass etc. Consider scar tissue w/mult surg. (M48.061) Spinal stenosis of lumbar region, unspecified whether neurogenic claudication present Plan: PAIN MANAGEMENT DRUG PANEL, URINE W/ INTERPRETATION Cont mgmt (R00.2) Palpitations Plan: EXTERNAL EKG 8 TO 15 DAYS R/o afib etc Patient instructed to go to ED via EMS if develops chest pain, dyspnea, diaphoresis, etc that lastsgreater than 15 minutes. (This note was completed using the dictation program Fluency Direct. As such, there may be misspellings, word substitutions, or other variations that should not change the essence of the clinical content of this encounter note.If there is need for further clarification, please direct questions to the provider listed above.) Marc Munguia MD * Mita Faustin LPN - 02/04/2024 1:21 PM EDT 02/04/24 1:21 PM Date to Remove: 02/18/24 Time to Remove: 1:20pm Serial Number: [id number] Ordering Provider: HATTIE MUKHERJEE Results: N/A Mita Faustin LPN Zio patch applied in clinic, as per provider orders. documented in this encounter Nursing Notes * Mita Faustin LPN - 02/04/2024 12:40 PM EDT The patient has been properly identified by confirmation of name and date of . Chief Complaint Patient presents with Physical-Exam Yearly physical documented in this encounter Plan of Treatment Upcoming Encounters Date Type Department Care Team (Late st Contact Info) Description 02/10/2024 1:00 PM EDT Imaging Radiology [facility] [address] [facility] [place] [address] 02/16/2024 11:00 AM EDT Office Visit General Surgery, [address] [place] [address] Isaac Sal MD [address] [place] [address] 02/07/2025 12:00 PM EDT Office Visit [facility] [address] [place] [address] Marc Munguia MD [address] [place] [address] Pending Results Name Type Priority Associated Diagnoses [...] H/O gastric bypass 02/04/2024 1:35 PM EDT PAIN MANAGEMENT DRUG PANEL, URINE W/ INTERPRETATION Lab Routine Spinal stenosis of lumbar region, unspecified whether neurogenic claudication present 02/04/2024 1:37 PM EDT Scheduled Orders Name Type Priority Associated Diagnoses Orde r Schedule CBC WITH WBC DIFFERENTIAL AND ANEMIA REFLEX WORKUP Lab Routine BRBPR (bright red blood per rectum) Expected: 02/04/2024 (Approximate), Expires: 02/03/2025 25-HYDROXY VITAMIN D Lab Routine H/O gastric bypass Expected: 02/04/2024 (Approximate), Expires: 02/03/2025 ZINC Lab Routine H/O gastric bypass Expected: 02/04/2024 (Approximate), Expires: 02/03/2025 IRON SCREEN, INCLUDING TIBC Lab Routine H/O gastric bypass Expected: 02/04/2024 (Approximate), Expires: 02/03/2025 FERRITIN Lab Routine H/O gastric bypass Expected: 02/04/2024 (Approximate), Expires: 02/03/2025 CT ABD/PELVIS W IV AND W ORAL CONTRAST Medical Imaging Routine Chronic RLQ pain Ordered: 02/04/2024 PAIN MANAGEMENT DRUG PANEL, URINE W/ INTERPRETATION Lab Routine Spinal stenosis of lumbar region, unspecified whether neurogenic claudication present Expected: 02/04/2024 (Approximate), Expires: 02/03/2025 EXTERNAL EKG 8 TO 15 DAYS Holter Routine Palpitations Expected: 02/05/2024 (Approximate), Expires: 02/03/2025 Scheduled Procedures Name Priority Associated Diagnoses Date/Ti me COLONOSCOPY FLEXIBLE PROXIMA L DIAGNOSTIC Recall Encounter for screening colonoscopy Scheduled Referrals Name Type Priority Associated Diagnoses Orde r Schedule SURGERY REFERRAL OP Referral Within 10 da ys (routine) Chronic RLQ pain Ordered: 02/04/2024 Health Maintenance Due Date Last Done Comments [...] D LEVEL ONCE IN A LIFETIME-USE SMARTSET# [id number] Completed 07/16/2022, 09/22/2019, 03/22/2019, Additional history exists [...] as of this encounter Visit Diagnoses Diagnosis Well adult exam- Primary Routine general medical examination at a health care facility Risk and functional assessment Screening for unspecified condition Obesity, morbid (more than 100 lbs over ideal weight or BMI > 40) (HCC) Morbid obesity Body mass index (BMI) of 40.0 to 44.9 in adult (HCC) Gastroesophageal reflux disease without esophagitis Esophageal reflux Atrophy of pancreas Other specified disease of pancreas Age-related osteoporosis without current pathological fracture Senile osteoporosis BRBPR (bright red blood per rectum) Hemorrhage of rectum and anus H/O gastric bypass Bariatric surgery status Chronic RLQ pain Abdominal pain, right lower quadrant Spinal stenosis of lumbar region, unspecified whether neurogenic claudication present Palpitations documented in this encounter Care Teams Natural Science Curator Relationship Specialty Start Date End Date Marc Munguia MD [address] [place] [address] PCP - General Family Medicine 03/06/16 documented as of this encounter
--- OUTSIDE RECORDS SUMMARY | 2024-02-09 14:28 | External Medical Summary | Summary of Care ---
Author Name Unknown Organization [facility] Address [address] [facility] [address] Phone [phone] Care Team Providers Care Interface Engineer Name Role Phone Marc Munguia MD Primary Care Provider + Reason for Visit * Reason Onset Date Comments Medication Refill 01/14/2024 Encounter Details Date Type Department Care Team (Late st Contact Info) Description 01/14/2024 Refill Family Practice [facility] [address] [facility] [place] [address] Marc Munguia MD [address] [place] [address] Degeneration of cervical intervertebral disc; MEDICATION USE AGREEMENT; DDD (degenerative disc disease), lumbar; Bilateral hip pain Allergies Active Allergy Reactions Criticality Noted Date Comments Aspirin 04/10/2009 Not able to tolerate following gastric bypass surgery 2003 Morphine Abdominal pain,Diarrhea,Flushing,N ausea/vomiting 12/12/2020 Nsaids 04/10/2009 Unable to tolerate following gastric bypass surgery 2004 documented as of this encounter (statuses as of 01/17/2024) Medications Medication Sig Dispensed Refills Start Date End Date Status MULTIPLE VITAMINS/WOMENS PO TABS 2 daily 0 Active Cholecalciferol (VITAMIN D) 2000 UNITS Tablet Take 2,000 Units by mouth daily. 0 Active fluticasone (FLONASE) 50 MCG/ACT nasal sprayIndications:Chr onic rhinitis USE TWO SPRAY(S) IN EACH NOSTRIL ONCE DAILY 16 g 11 06/03/2017 Active Cyanocobalamin (VITAMIN B12) 100 MCG TABS [...] SORES 100 Tablet 3 04/30/2023 4 Active Ondansetron HCl 4 MG Oral Tablet (Zofran) TAKE 1 TABLET BY MOUTH EVERY 6 HOURS NEEDED FOR NAUSEA 90 Tablet 2 02/06/2023 4 Active Omeprazole 40 MG Oral Capsule Delayed Release (PriLOSEC)Indication s:Chronic gastritis without bleeding, unspecified gastritis type TAKE ONE CAPSULE BY MOUTH EVERY DAY 1 HOUR BEFORE THE FIRST MEAL OF THE DAY 90 Capsule 3 02/02/2023 4 Active oxyCODONE-Acetaminop hen 7.5-325 MG Oral TabletIndications:De generation of cervical intervertebral disc,MEDICATION USE AGREEMENT,DDD (degenerative disc disease), lumbar,Bilateral hip pain Take 1 Tablet by mouth every 6 hours as needed for Pain, Severe. 120 Tablet 0 01/17/2024 Active oxyCODONE-Acetaminop hen 7.5-325 MG Oral TabletIndications:De generation of cervical intervertebral disc,MEDICATION USE AGREEMENT,DDD (degenerative disc disease), lumbar,Bilateral hip pain Take 1 Tablet by mouth every 6 hours as needed for Pain, Severe. 120 Tablet 0 12/19/2023 4 Discontinue d(Refill) documented as of this encounter (statuses as of 01/17/2024) Active Problems Problem Noted Date Diagnosed Date History of 2019 novel coronavirus disease (COVID -19) 12/18/2022 Obesity, morbid (more than 1 00 lbs over ideal weight or BMI > 40) 12/18/2022 Chronic kidney disease, stage 3a 12/16/2021 Iron deficiency anemia 04/04/2019 Gastroesophageal reflux disease [...] as of this encounter (statuses as of 01/17/2024) Resolved Problems Problem Noted Date Diagnosed Date Resolved Date Body mass index (BMI) of 40. 0 to 44.9 in adult 04/27/2022 07/29/2023 Overview: Per Obesity protocol Kidney disease, chronic, sta ge III (GFR [...] as of this encounter (statuses as of 01/17/2024) Immunizations Name Administration Dates Next Due COVID-19 [...] on file documented as of this encounter Miscellaneous Notes * Telephone Encounter - Randi Mullins MD - 01/17/2024 10:24 PM EST Signed Prescriptions: Disp Refills oxyCODONE-Acetaminophen 7.5-325 MG Oral Ta*120 Ta*0 Sig: Take 1 Tablet by mouth every 6 hours as needed for Pain, Severe.Authorizing Provider: RANDI MULLINS * Telephone Encounter - Randi Mullins MD - 01/17/2024 10:23 PM EST I have reviewed the patient's controlled substance dispensing history in the Prescription Drug Monitoring Program in compliance with the [facility] regulations before prescribing a controlled substance. Covering for Dr Munguia * Telephone Encounter - Jon Green, [facility] - 01/15/2024 10:48 AM EST Pending Prescriptions: Disp Refills oxyCODONE-Acetaminophen 7.5-325 MG Oral Ta*120 Ta*0 Sig: Take 1 Tablet by mouth every 6 hours as needed for Pain, Severe. * Telephone Encounter - Jon Green, [facility] - 01/15/2024 10:45 AM EST I have reviewed the patients controlled substance dispensing history in the Prescription Drug Monitoring Program in compliance with the [facility] regulations before prescribing a controlled substance. PDMP checked on 01/15/2024. Pending Prescriptions: Disp Refills oxyCODONE-Acetaminophen 7.5-325 MG Oral T*120 Ta*0 Sig: Take 1 Tablet by mouth every 6 hours as needed for Pain, Severe. Last Visit: 07/29/2023 (in office), Visit date not found (telemedicine) Next Visit: 02/04/2024 Date medication was last filled: 12/20/23 Date medication is due for refill: 01/17/24 Pharmacy: [facility] #[id number] Is this request for a controlled substance? Yes and Urine Drug Screen was completed Toxicology results: Results for orders placed or performed in visit on 12/18/22 PAIN MANAGEMENT DRUG PANEL, URINE W/ INTERPRETATION Result Value Compliance Interpretation Based on the medication information provided: The positive oxycodone screening result is CONSISTENT with oxycodone use. Confirmatory testing is available upon request. Amphetamines Screen, U Negative Benzodiazepines Screen, U Negative Cannabinoids Screen, U Negative Cocaine Metabolite Screen, U Negative Fentanyl Screen, U Negative Hydrocodone Screen, U Negative Methadone Metabolite Screen, U Negative Morphine/Codeine Screen, U Negative Oxycodone Screen, U Positive (A) Valid Interpretation Normal Creatinine, U 87 Narrative Cutoff Concentrations: Drug Level Amphetamines 500 ng/mL Benzodiazepines 100 ng/mL Cannabinoids 50 ng/mL Cocaine Metabolite 150 ng/mL Fentanyl 1 ng/mL Hydrocodone / Hydromorphone 300 ng/mL Methadone Metabolite 100 ng/mL Morphine / Codeine 300 ng/mL Oxycodone / Oxymorphone 100 ng/mL Screening results are presumptive and can only be used for medical purposes. Confirmatory testing is available upon request. Results for orders placed or performed in visit on 01/07/17 OPIOIDS/BENZO COMPLIANCE MONITORING TEST Result Value URINE DRUG SCREEN RESULT Amphetamine NEGATIVE Barbiturates NEGATIVE Benzodiazepines REFER TO CONFIRMATION RESULT (A) Cannabinoids NEGATIVE Cocaine Metabolite NEGATIVE METHADONE METABOLITE NEGATIVE Morphine / Codeine NEGATIVE OXYCODONE POSITIVE (A) COMMENT THE ABOVE SCREENING RESULTS ARE PRESUMPTIVE AND CAN ONLY BE USED FOR MEDICAL PURPOSES. CONFIRMATORY TESTING IS AVAILABLE UPON REQUEST. Cutoff Concentration URINE VALID INTERP NORMAL CREATININE SAMEER 100 NITRITE SAMEER 88 pH SAMEER 4.9 Results for orders placed or performed in visit on 03/06/16 TOX SCREEN, URINE, W/ CONFIRMATION Result Value Amphetamine NEGATIVE Barbiturates NEGATIVE Benzodiazepines NEGATIVE Cannabinoids NEGATIVE Cocaine Metabolite NEGATIVE Morphine / Codeine NEGATIVE METHADONE METABOLITE NEGATIVE OXYCODONE POSITIVE (A) TOX COMMENT THE ABOVE SCREENING RESULTS ARE PRESUMPTIVE AND CAN ONLY BE USED FOR MEDICAL PURPOSES. POSITIVE RESULTS REFLEX TO CONFIRMATORY TESTING. Cutoff Concentration Please approve if appropriate. Thanks, Jon Green, PharmD Clinical Pharmacist [facility] ([facility]) (formerly Telepharmacy) [phone] 01/15/2024, 10:45 AM documented in this encounter Plan of Treatment Upcoming Encounters Date Type Department Care Team (Late st Contact Info) Description 02/04/2024 12:20 PM EDT Office Visit [facility] [address] [place] [id number] Marc Munguia MD [address] [place] [address] Scheduled Procedures Name Priority Associated Diagnoses Date/Ti me COLONOSCOPY FLEXIBLE PROXIMA L DIAGNOSTIC Recall Encounter for screening colonoscopy Health Maintenance Due Date Last Done Comments Cologuard 1997 Fecal Occult Blood Test 1997 Sigmoidoscopy 1997 CKD PHOS USE SMARTSET 83248 04/11/2020 04/11/2019 DXA Scan 05/05/2020 05/05/2018, 03/12/2016 COVID-19 Vaccine ( season) 2023 10/14/2021, 01/22/2021, 12/25/2020 GFR 08/31/2023 03/01/2023, 020 01/2023, 12/04/2021, Additional history exists Depression Screening 12/18/2023 12/18/2022, 04/02/2017 (Declined) CKD HGB USE SMARTSET 52822 03/01/202403/01, 03/01/2023, 12/18/2022, Additional history exists Mammogram 05/10/2024 05/10/2023, 04/16, 04/15/2021, Additional history exists Albumin/Creatinine Ratio 09/17/2024 023, 10/02/2022, 03/22/2019 DTaP,Tdap,and Td Vaccines (3 - Td or Tdap) 04/02/2027 04/02/2017, 06/19/2009 Lipid Panel 07/16/2027 07/16/2022, 02/14, 10/22/2011, Additional history exists Colonoscopy 12/17/2027 12/17/2017, 12/2017, 11/25/2007 Colorectal Cancer Screening 12/17/2027 Zoster Vaccines Completed 09/23/2018, 11/2017, 03/02/2014 Pneumococcal Vaccine: 65+ Years Completed 10/14/2018, 10/05/2017 VITAMIN D LEVEL ONCE IN A LIFETIME-USE SMARTSET# [id number] Completed 07/16/2022, 09/22/2019, 03/22/2019, Additional history exists Influenza Vaccine (FLU shot) Completed 10/2023, 07/27/2022, 07/22/2021, Additional history exists GARDASIL-HPV IMMUNIZATION SERIES Aged Out No longer [...] as of this encounter Visit Diagnoses Diagnosis Degeneration of cervical intervertebral disc MEDICATION USE AGREEMENT DDD (degenerative disc disease), lumbar Degeneration of lumbar or lumbosacral intervertebral disc Bilateral hip pain Pain in joint, pelvic region and thigh documented in this encounter Care Teams Interface Engineer Relationship Specialty Start Date End Date Marc Munguia MD [address] [place] [address] PCP - General Family Medicine 03/06/16 documented as of this encounter
--- OUTSIDE RECORDS SUMMARY | 2024-02-09 14:28 | External Medical Summary ---
Author Name Unknown Address Unknown Organization K01:[place] [facility] [place] [address] [place] [address] Laboratory Report Ordering Provider Test Date Status HATTIE WOODALL 02/04/2024 13:35:04 Final Deficient: <20 ng/mL
Ins ufficient: 20-29 ng/mL
Recommended/Optimum:30-50 ng/mL

Vitamin D intoxication is rare. If suspicious of Vitamin D toxicity, evaluation of serum Calcium and PTH is recommended. Observation Date Value Abnormality Reference (Units ) Status 25-OH Vitamin D total 02/04/2024 13:35:04 64 >19 (ng/mL) Final Performing Location LABORATORY [facility] - [address] [place] [address]
--- OUTSIDE RECORDS SUMMARY | 2024-02-09 14:28 | External Medical Summary | Summary of Care ---
Author Name Unknown Organization [facility] Address [address] [facility] [place] [address] Phone [phone] Care Team Providers Care Coffee Brewer Name Role Phone Talisha Kuhn MD Primary Care Provider + Reason for Visit * Reason Comments Medication Refill Encounter Details Date Type Department Care Team (Late st Contact Info) Description 01/28/2024 Refill Family Practice [facility] [address] [place] [address] Talisha Kuhn MD [address] [place] [address] Allergies Active Allergy Reactions Criticality Noted Date Comments Aspirin 04/10/2009 Not able to tolerate following gastric bypass surgery 2003 Morphine Abdominal pain,Diarrhea,Flushing,N ausea/vomiting 12/12/2020 Nsaids 04/10/2009 Unable to tolerate following gastric bypass surgery 2004 documented as of this encounter (statuses as of 01/30/2024) Medications Medication Sig Dispensed Refills Start Date End Date Status MULTIPLE VITAMINS/WOMENS PO TABS 2 daily 0 Active Cholecalciferol (VITAMIN D) 2000 UNITS Tablet Take 2,000 Units by mouth daily. 0 Active fluticasone (FLONASE) 50 MCG/ACT nasal sprayIndications:Ch ronic rhinitis USE TWO SPRAY(S) IN EACH NOSTRIL ONCE DAILY 16 g 11 06/03/2017 Active Additional Information Patient not taking.Reported on 01/27/2024 Cyanocobalamin (VITAMIN B12) 100 MCG TABS Take [...] NAUSEA 90 Tablet 2 01/30/2024 5 Active Ondansetron HCl 4 MG Oral Tablet (Zofran) TAKE 1 TABLET BY MOUTH EVERY 6 HOURS NEEDED FOR NAUSEA 90 Tablet 2 02/06/2023 4 Discontinu ed(Refill) documented as of this encounter (statuses as of 01/30/2024) Active Problems Problem Noted Date Diagnosed Date [...] as of this encounter (statuses as of 01/30/2024) Resolved Problems Problem Noted Date Diagnosed Date [...] as of this encounter (statuses as of 01/30/2024) Immunizations Name Administration Dates Next Due COVID-19 [...] encounter Miscellaneous Notes * Telephone Encounter - Talisha Woodward RPh - 01/30/2024 1:04 AM EDT Signed Prescriptions: Disp Refills Ondansetron HCl 4 MG Oral Tablet (Zofran) 90 Tab*2 Sig: TAKE 1 TABLET BY MOUTH EVERY 6 HOURS NEEDED FOR NAUSEAAuthorizing Provider: TALISHA KUHNOrderingUser: TALISHA WOODWARD documented in this encounter Plan of Treatment Upcoming Encounters Date Type Department Care Team (Late st Contact Info) Description 02/04/2024 12:20 PM EDT Office Visit Family [facility] [address] [place] [address] Talisha Kuhn MD [address] [place] [address] Scheduled Procedures Name Priority Associated Diagnoses Date/Ti me COLONOSCOPY FLEXIBLE PROXIMA L DIAGNOSTIC Recall Encounter for screening colonoscopy Health Maintenance Due Date Last Done Comments Cologuard 1997 Fecal Occult Blood Test 1997 Sigmoidoscopy 1997 DXA Scan 05/05/2020 05/05/2018, 03/12/2016 COVID-19 Vaccine ( season) 2023 10/14/2021, 01/22/2021, 12/25/2020 Depression Screening 12/18/2023 12/18/2022, 04/02/2017 (Declined) CKD HGB USE SMARTSET 71930 03/01/202403/01, 03/01/2023, 12/18/2022, Additional history exists Mammogram 05/10/2024 05/10/2023, 04/16, 04/15/2021, Additional history exists GFR 07/29/2024 01/27/2024, 02/13, 12/18/2022, Additional history exists Albumin/Creatinine Ratio 09/17/2024 023, 10/02/2022, 03/22/2019 CKD PHOS USE SMARTSET 49531 01/26/2025 01/27/2024, 0 04/11/2019 DTaP,Tdap,and Td Vaccines (3 - Td or Tdap) 04/02/2027 04/02/2017, 06/19/2009 Lipid Panel 07/16/2027 07/16/2022, 02/14, 10/22/2011, Additional history exists Colonoscopy 12/17/2027 12/17/2017, 12/2017, 11/25/2007 Colorectal Cancer Screening 12/17/2027 Zoster Vaccines Completed 09/23/2018, 11/2017, 03/02/2014 Pneumococcal Vaccine: 65+ Years Completed 10/14/2018, 10/05/2017 VITAMIN D LEVEL ONCE IN A LIFETIME-USE SMARTSET# [id number] Completed 07/16/2022, 09/22/2019, 03/22/2019, Additional history exists [...] Not on filedocumented as of this encounter Care Teams Coffee Brewer Relationship Specialty Start Date End Date Talisha Kuhn MD [address] [place] [address] PCP - General Family Medicine 03/06/16 documented as of this encounter
--- OUTSIDE RECORDS SUMMARY | 2024-02-09 14:28 | External Medical Summary ---
Author Name Unknown Address Unknown Organization K01:[facility] [place] [address] [place] [address] Laboratory Report Ordering Provider Test Date Status HATTIE WOODALL 02/04/2024 13:35:04 Final Observation Date Value Abnormality Reference (Units ) Status Ferritin 02/04/2024 13:35:04 53 13-150 (ng /mL) Final Postmenopausal women have hi gher ferritin levels than pre-menopausal women. The above reference interval is based on pre-menopausal women. Performing Location LABORATORY [facility] - [address] [place] [address]
--- OUTSIDE RECORDS SUMMARY | 2024-02-09 14:28 | External Medical Summary ---
Author Name Unknown Address Unknown Organization K01:[facility]ATORY [facility] [place] - [facility] [place] [address] Laboratory Report Ordering Provider Test Date Status HATTIE WOODALL 02/04/2024 13:35:04 Final Observation Date Value Abnormality Reference (Units ) Status WBC, Total 02/04/2024 13:35:04 7.23 4.00-10.8 0 (K/uL) Final RBC 02/04/2024 13:35:04 4.52 3.85-5.15 (M/uL) Final Hemoglobin 02/04/2024 13:35:04 13.9 12.0-15.3 (g/dL) Final Anemia reflex testing trigge rs on a HGB < 12.0 for Females and HGB < 13.0 for Males in accordance with the WHO Anemia Guidelines
Anemia reflex testing triggers on a HGB < 12.0 for Females and HGB < 13.0 for Males in accordance with the WHO Anemia Guidelines HCT 02/04/2024 13:35:04 45.9 Above hi gh normal 36.0-45.2 (%) Final MCV 02/04/2024 13:35:04 101.5 81.5-97.5 (fL) Final MCH 02/04/2024 13:35:04 30.8 27.0-34.0 (pg) Final MCHC 02/04/2024 13:35:04 30.3 32.0-36.0 (g/dL) Final RDW 02/04/2024 13:35:04 14.1 11.5-15.5 (%) Final Platelets 02/04/2024 13:35:04 276 140-400 (K /uL) Final MPV 02/04/2024 13:35:04 11.0 6.6-11.1 ( fL) Final Nucleated erythrocytes/100 leukocytes [Ratio] in Blood by Automated count 02/04/2024 13:35:04 0 <=0 (/100 WBCs) Brice allen Performing Location LABORATORY [facility] - [address] [facility] [address]
--- OUTSIDE RECORDS SUMMARY | 2024-02-09 14:28 | External Medical Summary ---
Author Name Unknown Address Unknown Organization : Laboratory Report Ordering Provider Test Date Status HATTIE WOODALL 02/04/2024 13:35:04 Final Observation Date Value Abnormality Reference (Units ) Status Zinc, level 02/04/2024 13:35:04 67 60-130 ( mcg/dL) Final This test was developed and its analytical performance
characteristics have been determined by [facility]
[place], [place]. It has
not been cleared or approved by the U.S. Food and Drug
Administration. This assay has been validated pursuant
to the CLIA regulations and is used for clinical
purposes.

Test Performed at:
[email or web address] [place]
[address] [facility] [place] [address]
Wade Rutherford M.D., Ph.D.,Director of Laboratories Performing Location
--- OUTSIDE RECORDS SUMMARY | 2024-02-09 14:28 | External Medical Summary ---
Author Name Unknown Address Unknown Organization K01:[facility] [place] [address] [facility] [address] Laboratory Report Ordering Provider Test Date Status TALISHAHATTIE 02/04/2024 13:37:36 Final Drugs that require complianc e testing:

Opioids:
Oxycodone:

Cutoff Concentrations:
Drug Level
Amphetamines 500 ng/mL
Benzodiazepines 100 ng/mL
Cannabinoids 50 ng/mL
Cocaine Metabolite 150 ng/mL
Fentanyl 1 ng/mL
Hydrocodone / Hydromorphone 300 ng/mL
Methadone Metabolite 100 ng/mL
Morphine / Codeine 300 ng/mL
Oxycodone / Oxymorphone 100 ng/mL

Screening results are presumptive and can only be used for medical purposes. Confirmatory testing is available upon request. Observation Date Value Abnormality Reference (Units) Status COMPLIANCE INTERPRETATION 02/04/2024 13:37:36 Based on the medication information provided: Final COMPLIANCE INTERPRETATION 02/04/2024 13:37:36 The positive oxycodone screening result is CONSISTENT with oxycodone use. Confirmatory testing is available upon request. Final Changed Report: Previously r eported on 02/05/2024 at 1347 EDT. See Results History in EPIC for previous versions of the report. Amphetamines, Urine screen 02/04/2024 13:37:36 Negative Negative Final Benzodiazepines, Urine screen 02/04/2024 13:37:36 Negative Negative Final Cannabinoids, Urine screen 02/04/2024 13:37:36 Negative Negative Final Cocaine Metabolite, Urine screen 02/04/2024 13:37:36 Negativ e Negative Final fentaNYL [Presence] in Urine by Screen method 02/04/2024 13:37:36 Negative Negative Final HYDROcodone [Presence] in Ur ine by Screen method 02/04/2024 13:37:36 Negative Negative Kristen l 2-Tnyxkjmeie-7,8-Zkswtnmq-3, 3-Di phenylpyrrolidine (EDDP) [Presence] in Urine 02/04/2024 13:37:36 Negative Negative F inal Opiates, Urine screen 02/04/2024 13:37:36 Negative Negative Final oxyCODONE [Presence] in Urin e by Screen method 02/04/2024 13:37:36 Positive Abnormal Negative Final FORENSIC VALID INTERPRETATION 02/04/2024 13:37:36 Normal Final Creatinine, Urine 02/04/2024 13:37:36 107 (m g/dL) Final Performing Location [facility] [place] [address] [facility] [address]
--- OUTSIDE RECORDS SUMMARY | 2024-02-09 14:28 | External Medical Summary | Summary of Care ---
Author Name Unknown Organization [facility] Address [address] [address] Phone [phone] Care Team Providers Care Traffic Court Referee Name Role Phone Marc Munguia MD Primary Care Provider + Reason for Visit * Reason Comments Sore Throat Started this past Sinus Problem Pressure, drainage Headache Fatigue Cough occasional Encounter Details Date Type Department Care Team (Late st Contact Info) Description 01/27/2024 9:20 AM EDT Office Visit Family [facility] [address] [place] [address] Jerry Mayo CRNP [address] [place] [address] Sore throat*; H/O gastric bypass Allergies Active Allergy Reactions Criticality Noted Date Comments Aspirin 04/10/2009 Not able to tolerate following gastric bypass surgery 2003 Morphine Abdominal pain,Diarrhea,Flushing,N ausea/vomiting 12/12/2020 Nsaids 04/10/2009 Unable to tolerate following gastric bypass surgery 2004 documented as of this encounter (statuses as of 01/27/2024) Medications Medication Sig Dispensed Refills Start Date [...] Pain, Severe. 120 Tablet 0 01/17/2024 Active documented as of this encounter (statuses as of 01/27/2024) Active Problems Problem Noted Date Diagnosed Date [...] as of this encounter (statuses as of 01/27/2024) Resolved Problems Problem Noted Date Diagnosed Date [...] as of this encounter (statuses as of 01/27/2024) Immunizations Name Administration Dates Next Due COVID-19 [...] Sign Reading Time Taken Comments Blood Pressure 136/84 01/27/2024 9:13 AM EDT Pulse 64 01/27/2024 9:13 AM EDT Temperature 36.3 C (97.4 F) 01/27/2024 9:13 AM ED T Respiratory Rate 20 01/27/2024 9:13 AM EDT Oxygen Saturation 96% 01/27/2024 9:13 AM EDT room air Inhaled Oxygen Concentration - - Weight - - Height - - Body Mass Index - - documented in this encounter Progress Notes * Jerry Mayo CRNP - 01/27/2024 9:23 AM EDT Images from the original note were not included. Acute URI Family Medicine Visit History of Present Illness CC: Chief Complaint Patient presents with Sore Throat Started this past Wednesday Sinus Problem Pressure, drainage Headache Fatigue Cough occasional Siena L Patricia is a very pleasant 73 year old female with above complaints x 2 days. Symptoms are same over the periods. Previous lung disease: None Has tried OTC cold syrup with no relief. -fever, t max -chills -sweats +decreased appetite +tolerating fluids +LORA +congestion -loss of taste or smell +runny nose +PND -ear pain +sore throat -blurred vision -eye discharge -cough -productive of mucous -sob -wheezing +nausea (Wednesday) +diarrhea (Wednesday, stopped) -constipation -vomiting +body aches -Rash -Sleep disruption/ oversleeping last night - no sick contact - no checking for covid Past Medical History: Diagnosis Date Avascular necrosis [...] scar tissue from prior PNA - unchanging Social History Socioeconomic History Marital status: Spouse name: Not on file Number of children: Not on file Years of education: Not on file Highest education level: Not on file Occupational History Occupation: retired. [employer] [facility] center. 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 Tobacco Use Smoking status: [...] on file Housing Stability: Not on file PMH: Past Medical History: Diagnosis Date Avascular necrosis [...] performed by Scar Greenberg MD at ENDOSCOPY [facility] [address] EGD, FLEXIBLE, DIAGNOSTIC 12/17/2017 mild - mod inflammation on bx/ESOPHAGOGASTRODUODENOSCOPY (EGD), FLEXIBLE, TRANSORAL, DIAGNOSTIC performed by Scar Greenberg MD at ENDOSCOPY [facility] [address] EGD, W/ENDOSCOPIC US 10/31/2018 normal bx/ESOPHAGOGASTRODUODENOSCOPY (EGD), FLEXIBLE, TRANSORAL, ENDOSCOPIC ULTRASOUND performed byRuperto Brewer DO at ENDOSCOPY [facility] [address] GASTRIC BYPASS FOR OBESITY 2004 at [place] INCISIONAL HERNIA REPAIR, LAP, REDUCIBLE 2008 LAPAROSCOPY; CHOLECYSTECTOMY 12/26/2018 12/26/2018 laparoscopic cholecystectomy [facility] DR. Sebas Mckeon LIGATE/CUT OVIDUCT(S) REBUILD EARDRUM STRUCTURES W/PROSTH Left 11/26/2011 DR. Gregorio [facility] REMOVE TONSILS & ADENOIDS, UNDER 12 REPAIR RUPTURED ROTATOR CUFF, CHRON Right Required 3 procedures SHOULDER SURGERY PROCEDURE NEC Right 2005 x3 for frozen shoulder SINUS SURGERY PROCEDURE NEC 2000 Outpatient Medications Marked as Taking for the 01/27/24 encounter (Office Visit) with Jerry Mayo CRNP Medication Sig oxyCODONE-Acetaminophen 7.5-325 MG Oral Tablet Take 1 Tablet by mouth every 6 hours as needed for Pain, Severe. Diclofenac Sodium 1 % External Gel (Voltaren) APPLY 4 GM TOPICALLY TO AFFECTED AREA(S) FOUR TIMES ADAY NEEDED FOR OTHER (MUSCLE SORENESS) valACYclovir HCl 500 MG Oral Tablet (Valtrex) TAKE 1 TABLET BY MOUTH EVERY MORNING FOR COLD SORES Ondansetron HCl 4 MG Oral Tablet (Zofran) TAKE 1 TABLET BY MOUTH EVERY 6 HOURS NEEDED FOR NAUSEA Omeprazole 40 MG Oral Capsule Delayed Release (PriLOSEC) TAKE ONE CAPSULE BY MOUTH EVERY DAY 1 HOURBEFORE THE FIRST MEAL OF THE DAY Dicyclomine HCl 10 MG Oral Capsule (Bentyl) Take 1 Cap by mouth 4 times a day as needed (stomach cramp). For abdominal pain diphenhydrAMINE HCl 25 MG Oral Capsule Take 1 Capsule by mouth every 6 hours as needed for Itching. Cyanocobalamin (VITAMIN B12) 100 MCG TABS Take by mouth. Cholecalciferol (VITAMIN D) 2000 UNITS Tablet Take 2,000 Units by mouth daily. MULTIPLE VITAMINS/WOMENS PO TABS 2 daily Review of patient's allergies indicates: Allergen Reactions Aspirin Not able to tolerate following gastric bypass surgery 2003 Morphine Abdominal pain, Diarrhea, Flushing and Nausea/vomiting Nsaids Unable to tolerate following gastric bypass surgery 2003 Most Recent Immunizations Administered Date(s) Administered COVID-19 mRNA, LNP-s, No Preserve, 2-Dose Series (Moderna) 01/22/2021 COVID-19, mRNA, LNP-s, PF, Booster, 100mcg/0.5mg (Moderna) 10/14/2021 Denosumab 09/16/2018 Pneumococcal Conjugate Vacc, 13 Valent (Prevnar) 10/05/2017 Pneumococcal Polysaccharide PPV23 (Pneumovax) 10/14/2018 Season Influenza, Quad, PF, Adjuvanted, 65+ Yrs, IM (FLUAD) 07/24/2020 Seasonal Influenza, PF, 6 M & above, IM , (FluLaval or Fluzone) 07/14/2019 Seasonal Influenza, Quadrivalent Hd (Fluzone Hd) 07/27/2023 Seasonal Influenza, Quadrivalent, No Preserve, IM 07/27/2017 Seasonal Influenza, Split, IIV3, With Preserve, Inj 08/06/2016 TDAP (age 10 and older)(Boostrix) 04/02/2017 TDAP (age 11 and older)(Adacel) 06/19/2009 Varicella Zoster Vaccine (Adult) 03/02/2014 Vitamin B12 Injection 03/06/2016 Zoster Vaccine Recombinant (Shingrix) 09/23/2018 Review of Systems: Physical Exam BP 136/84 (BP Site: Left Arm, BP Position: Sitting, BP Cuff Size: Large) | Pulse 64 | Temp 36.3 C(97.4 F) (Tympanic) | Resp 20 | SpO2 96% Comment: room air Physical Exam Constitutional: Appearance: Normal appearance. HENT: Head: Normocephalic. Right Ear: Tympanic membrane, ear canal and external ear normal. Left Ear: Tympanic membrane, ear canal and external ear normal. Nose: Nose normal. Right Sinus: No maxillary sinus tenderness or frontal sinus tenderness. Left Sinus: No maxillary sinus tenderness or frontal sinus tenderness. Mouth/Throat: Pharynx: Posterior oropharyngeal erythema present. Tonsils: 0 on the right. 0 on the left. Cardiovascular: Rate and Rhythm: Normal rate and regular rhythm. Pulmonary: Effort: Pulmonary effort is normal. Breath sounds: Normal breath sounds. Musculoskeletal: Cervical back: Neck supple. Skin: General: Skin is warm. Neurological: Mental Status: She is alert and oriented to person, place, and time. Psychiatric: Mood and Affect: Mood normal. Assessment and Plan 1. Sore throat Suspect viral etiology Hx of multiple tonsillitis/strep R/o strep, flu, Covid - STREP A SCREEN, POINT OF CARE (ENTER/EDIT) - INFLUENZA A/B RSV SARS-COV2,PCR; Future - GROUP A STREP PCR - INFLUENZA A/B RSV SARS-COV2,PCR 2. H/O gastric bypass Avoid ibuprofen Wrap-Up Recommend supportive care including: Humidifier Rest Push fluids Reviewed pathophysiology of viral URI Recommend handwashing and covering cough Reviewed signs and symptoms in which to seek medical care I have advised the patient to call our office incase of any worsening or new symptoms. A total of 20 minutes were spent with the patient, more than half in [id number] explanation and discussion of the condition and treatment and answering questions. Jerry Mayo, MSN, FACTORY HELPER [facility] Medicine documented in this encounter Nursing Notes * Jon Rondon RN - 01/27/2024 9:16 AM EDT Chief Complaint Patient presents with Sore Throat Started this past Wednesday Sinus Problem Pressure, drainage Headache Fatigue Cough occasional documented in this encounter Plan of Treatment Upcoming Encounters Date Type Department Care Team (Late st Contact Info) Description 02/04/2024 12:20 PM EDT Office Visit Family Practice [facility] [address] [place] [phone] Marc Munguia MD [address] [place] [address] Pending Results Name Type Priority Associated Diagnoses Date /Time GROUP A STREP PCR Lab Routine Sore throat 01/27/2024 10:00 AM EDT Scheduled Procedures Name Priority Associated Diagnoses Date/Ti me COLONOSCOPY FLEXIBLE PROXIMA L DIAGNOSTIC Recall Encounter for screening colonoscopy Health Maintenance Due Date Last Done Comments Cologuard 1997 Fecal Occult Blood Test 1997 Sigmoidoscopy 1997 CKD PHOS USE SMARTSET 68856 04/11/2020 04/11/2019 DXA Scan 05/05/2020 05/05/2018, 03/12/2016 COVID-19 Vaccine ( season) 2023 10/14/2021, 01/22/2021, 12/25/2020 Depression Screening 12/18/2023 12/18/2022, 04/02/2017 (Declined) CKD HGB USE SMARTSET 88592 03/01/202403/01, 03/01/2023, 12/18/2022, Additional history exists Mammogram 05/10/2024 05/10/2023, 04/16, 04/15/2021, Additional history exists GFR 07/29/2024 01/27/2024, 02/13, 12/18/2022, Additional history exists Albumin/Creatinine Ratio 09/17/2024 023, 10/02/2022, 03/22/2019 DTaP,Tdap,and Td Vaccines (3 - Td or Tdap) 04/02/2027 04/02/2017, 06/19/2009 Lipid Panel 07/16/2027 07/16/2022, 2 05/2016, 10/22/2011, Additional history exists Colonoscopy 12/17/2027 12/17/2017, 12/2017, 11/25/2007 Colorectal Cancer Screening 12/17/2027 Zoster Vaccines Completed 09/23/2018, 11/2017, 03/02/2014 Pneumococcal Vaccine: 65+ Years Completed 10/14/2018, 10/05/2017 VITAMIN D LEVEL ONCE IN A LIFETIME-USE SMARTSET# 19407 Completed 07/16/2022, 09/22/2019, 03/22/2019, Additional history exists [...] Not on filedocumented as of this encounter Procedures Procedure Name Priority Date/Time Associated Diagnosis Comments INFLUENZA A/B RSV SARS-COV2,PCR Routine 01/27/2024 10:00 AM EDT Sore throat STREP A SCREEN, POINT OF CARE (ENTER/EDIT) Routine 01/27/2024 Sore throat documented in this encounter Results * INFLUENZA A/B RSV SARS-COV2,PCR (01/27/2024 10:00 AM EDT) SARS-CoV-2 (COVID-19) Result Negative Negative 01/27/2024 12:44 PM EDT [facility] [place] [facility] Comment: No SARS-CoV2 Coronavirus RNA detected by PCR (amplified probe). This express test was developed and its performance characteristics determined by [facility]. It has not been cleared or approved by the U.S. Food and Drug Administration (FDA). FDA does not require this test to go thru premarket FDA review. This test is used for clinical purposes. It should not be regarded as investigational or for research. This laboratory is certified under the Clinical Laboratory Improvement Amendments (CLIA) as qualified to perform high complexity clinical laboratory testing. This test is a nucleic acid amplification test (NAAT), a reverse transcriptase polymerase chain reaction (RT-PCR) test, or a Centers for Disease Control- acceptable equivalent. The test is performed in a high complexity Clinical Laboratory Improvement Amendments-(CLIA) certified laboratory. The test is acceptable for SARS-CoV-2 diagnosis, surveillance, and travel within the [place] and to most countries. Please check with local testing authorities about requirements before travel. The validation of bronchial specimens, tracheal aspirates, and sputum for this assay was developed and performance characteristics determined by [facility]. The validation of alternate specimen types has not been cleared or approved by the U.S. Food and Drug Administration (FDA). It has been determined that such clearance is not necessary. Influenza A PCR Result Negative Negative 01/27/2024 12:44 PM EDT [facility] [place] [facility] Comment:No Influenza A RNA d etected by PCR (amplified probe) Influenza B PCR Result Negative Negative 01/27/2024 12:44 PM EDT [facility] [place] [facility] Comment:No Influenza B RNA d etected by PCR (amplified probe) RSV PCR Result Negative Negative 01/27/2024 12:44 PM EDT [facility] [place] [facility] Comment:No Respiratory Syncy tial Virus RNA detected by PCR (amplified probe) Upper Respiratory Mid-turbinate nasal swab / Unknown Non-blood Collection / Unknown 01/27/2024 10:00 AM EDT 01/27/2024 11:53 AM EDT Jerry CRAIG LAB MICRO - GENERAL ORDERABLES [facility] [place] [facility] [place] [address] * STREP A SCREEN, POINT OF CARE (ENTER/EDIT) (01/27/2024) Strep A Result Negative Negative Procedural Control Valid? Yes Lot Number [id number] Expiration Date 02/22/2025 Swab Throat swab / Unknown 01/27/2024 Jerry CRAIG LAB POINT OF CARE TE ST ENTER/EDIT ORDERABLES documented in this encounter Visit Diagnoses Diagnosis Sore throat- Primary Acute pharyngitis H/O gastric bypass Bariatric surgery status documented in this encounter Care Teams Traffic Court Referee Relationship Specialty Start Date End Date Marc Munguia MD [address] [place] [address] PCP - General Family Medicine 03/06/16 documented as of this encounter"
--- OUTSIDE RECORDS SUMMARY | 2024-02-09 14:28 | External Medical Summary ---
Author Name Unknown Address Unknown Organization [id number]:LABORATORY [facility] [place] [place] - [address] [facility] [address] Laboratory Report Ordering Provider Test Date Status KUN WOODALLSUKH 02/04/2024 13:35:04 Final Observation Date Value Abnormality Reference (Units ) Status SYNC LEUKOCYTES IN BLOOD BY AUTOMATED COUNT 02/04/2024 13:35:04 7.23 4.00-10.80 (K/uL) Final Segs 02/04/2024 13:35:04 52.9 40.0-75.0 (%) Final Lymphs % 02/04/2024 13:35:04 34.3 18.0-42.0 (%) Final Monos 02/04/2024 13:35:04 11.1 Above high normal 1.0-11.0 (%) Final Eosinophils 02/04/2024 13:35:04 0.6 0.0-6.0 (%) Final Basos 02/04/2024 13:35:04 1.0 0.0-2.0 (%) Final Immature Granulocyte, Percent 02/04/2024 13:35:04 0.1 0.0-2.0 (%) Final Absolute Segs 02/04/2024 13:35:04 3.83 1.80-7.70 (K/uL) Final Lymphs, absolute 02/04/2024 13:35:04 2.48 1.00-4.80 (K/ul) Final Monos, Abs 02/04/2024 13:35:04 0.80 0.00-1.10 (K/uL) Final Eos, Abs 02/04/2024 13:35:04 0.04 0.00-0.70 (K/uL) Final Basos, Abs 02/04/2024 13:35:04 0.07 0.00-0.20 (K/uL) Final Immature Granulocytes, Number 02/04/2024 13:35:04 0.01 0.00-0.20 (K/uL) Final Performing Location LABORATORY [facility] [place] [place] - [address] [facility] [address]
--- OUTSIDE RECORDS SUMMARY | 2024-02-09 14:28 | External Medical Summary ---
Author Name Unknown Address Unknown Organization [id number]:[facility]ATORY [facility] - [address] [place] [address] Laboratory Report Ordering Provider Test Date Status HATTIE WOODALL 01/27/2024 10:31:43 Final Observation Date Value Abnormality Reference (Units ) Status BUN 01/27/2024 10:31:43 12 6-20 (mg/dL) Final Creatinine 01/27/2024 10:31:43 1.0 0.5-1.0 (mg/dL) Final Glomerular filtration rate/1.73 sq M.predicted [Volume Rate/Area] in Serum, Plasma or Blood by Creatinine-based formula (CKD-EPI) 01/27/2024 10:31:43 62 >=60 (mL/min) Final eGFR is calculated based on the CKD-EPI 2020 equation SODIUM 01/27/2024 10:31:43 134 Below low normal 135 -146 (mmol/L) Final Potassium 01/27/2024 10:31:43 4.9 3.5-5.1 (m mol/L) Final Cl 01/27/2024 10:31:43 98 98-107 (mm ol/L) Final CO2 01/27/2024 10:31:43 27 22-32 (mmo l/L) Final Anion gap 01/27/2024 10:31:43 9 7-15 (mmol /L) Final Glucose 01/27/2024 10:31:43 100 70-120 (mg /dL) Final Albumin 01/27/2024 10:31:43 3.8 3.8-5.0 (g /dL) Final AST (Aspartate aminotransferase) 01/27/2024 10:31:43 37 Above high normal 10-35 (U/L) Final Alk Phos 01/27/2024 10:31:43 105 35-130 (U/ L) Final Bilirubin, Total 01/27/2024 10:31:43 0.5 <=1 .2 (mg/dL) Final Calcium 01/27/2024 10:31:43 9.4 8.4-10.2 ( mg/dL) Final Protein 01/27/2024 10:31:43 6.9 6.0-8.3 (g /dL) Final ALT (Alanine aminotransferase) 01/27/2024 10:31:43 30 10-35 (U/L) Panfilo muñoz Performing Location LAB[facility]ATORY [place] - [address] [facility] [address]
--- OUTSIDE RECORDS SUMMARY | 2024-02-09 14:28 | External Medical Summary | Summary of Care ---
Author Name Unknown Organization [facility] Address [address] [facility] [address] Phone [phone] Care Team Providers Care Speech Scientist Name Role Phone Marc Munguia MD Primary Care Provider + Reason for Visit * Reason Comments Outpatient Testing Encounter Details Date Type Department Care Team (Late st Contact Info) Description 01/27/2024 10:50 AM EDT Laboratory Laboratory, [facility] [address] [facility] [place] [address] Barber[facility]ella alcazar [facility] [address] [facility] [address] [employer] Other*[id number]; Chronic kidney disease, unspecified CKD stage Allergies Active Allergy Reactions Criticality Noted Date [...] forearm, closed 06/13/2011 08/03/2011 Overview: Seeing Dr. Sherbondy for tx Chronic pain syndrome 2009 Overview: Saw Dr. Remy - chronic neck pain - off meds since 04/2009 Shoulder joint pain 11/13/20 19 Overview: h/o frozen shoulder - some permanent [...] 12:20 PM EDT Office Visit Family Practice [facility] [address] [facility] [place] [address] Marc Munguia MD [address] [facility] [place] [address] Pending Results Name Type Priority Associated Diagnoses Date /Time MYCODE SUBSEQUENT ADULT Lab Routine [employer] Other*[id number] 01/27/2024 10:31 AM EDT COMPREHENSIVE METABOLIC PANEL Lab Routine Chronic kidney disease, unspecified CKD stage 01/27/2024 10:31 AM EDT PHOSPHORUS Lab Routine Chronic kidney disease, unspecified CKD stage 01/27/2024 10:31 AM EDT MYCODE SST1 Lab Routine [employer] Other*[id number] 01/27/2024 10:31 AM EDT MYCODE SST2 Lab Routine [employer] Other*[id number] 01/27/2024 10:31 AM EDT Scheduled Procedures Name Priority Associated Diagnoses Date/Ti me COLONOSCOPY FLEXIBLE PROXIMA L DIAGNOSTIC Recall Encounter for screening colonoscopy Health Maintenance Due Date Last Done Comments Cologuard 1997 Fecal Occult Blood Test 1997 Sigmoidoscopy 1997 CKD PHOS USE SMARTSET 81794 04/11/2020 04/11/2019 DXA Scan 05/05/2020 05/05/2018, 03/12/2016 COVID-19 Vaccine ( season) 2023 10/14/2021, 01/22/2021, 12/25/2020 GFR 08/31/2023 03/01/2023, 01/2023, 12/04/2021, Additional history exists Depression Screening 12/18/2023 12/18/2022, 04/02/2017 (Declined) CKD HGB USE SMARTSET 99768 03/01/202403/01, 03/01/2023, 12/18/2022, Additional history exists Mammogram [...] D LEVEL ONCE IN A LIFETIME-USE SMARTSET# [id number] Completed 07/16/2022, 09/22/2019, 03/22/2019, Additional history exists [...] as of this encounter Visit Diagnoses Diagnosis [employer] Other*[id number] Chronic kidney disease, unspecified CKD stage documented in this encounter Care Teams Speech Scientist Relationship Specialty Start Date End Date Marc Munguia MD [address] [place] [address] PCP - General Family Medicine 03/06/16 documented as of this encounter
--- OUTSIDE RECORDS SUMMARY | 2024-02-09 14:28 | External Medical Summary ---
Author Name Unknown Address Unknown Organization K01:LABORATORY [facility] [place] - [address] [place] [address] Laboratory Report Ordering Provider Test Date Status HATTIE WOODALL 02/04/2024 13:35:04 Final Observation Date Value Abnormality Reference (Units ) Status Iron 02/04/2024 13:35:04 123 33-151 (ug/dL) Final Iron-binding capacity 02/04/2024 13:35:04 432 Above high normal 250-425 (ug/dL) Final Transferrin Sat % 02/04/2024 13:35:04 28 15-55 (%) Final Performing Location LABORATORY [facility] [place] - [address] [place] [address]
--- OUTSIDE RECORDS SUMMARY | 2024-02-09 14:28 | External Medical Summary ---
Author Name Unknown Address Unknown Organization K01:LABORATORY [address] [facility] [address] Laboratory Report Ordering Provider Test Date Status YAMEL FRITZ 01/27/2024 10:00:32 Final Observation Date Value Abnormality Reference (Units) Status Streptococcus pyogenes DNA [Presence] in Throat by [facility] with probe detection 01/27/2024 10:00:32 Negative. No Group A Streptococcus detected by PCR (amplified probe). Negative Final This test was developed and its performance characteristics determined by [facility] [employer]. It has not been cleared or approved by the FDA. The laboratory is regulated under CLIA as qualified to perform high- complexity testing. This test is used for clinical purposes. It should not be regarded as investigational or for research. Performing Location [facility] [place] [facility] [address] [address] [facility] [address]
--- OUTSIDE RECORDS SUMMARY | 2024-02-09 14:28 | External Medical Summary ---
Author Name Unknown Address Unknown Organization K01:LABORATORY [facility] [place] - [address] [place] [address] Laboratory Report Ordering Provider Test Date Status CHAGO OBREGON 01/27/2024 10:31:43 Final Observation Date Value Abnormality Reference (Units ) Status MYCODE SPECIMEN-SST 01/27/2024 10:31:43 Freezing of extracted DNA, whole blood and/or serum. Final Performing Location LABORATORY [facility] [place] - [address] [place] [address]
--- OUTSIDE RECORDS SUMMARY | 2024-02-09 14:28 | External Medical Summary ---
Author Name Unknown Address Unknown Organization K0G:[facility] - [address] [place] [address] Laboratory Report Ordering Provider Test Date Status YAMEL FRITZ 01/27/2024 10:00:54 Final Observation Date Value Abnormality Reference (Units ) Status SARS Coronavirus 2 01/27/2024 10:00:54 Negative N egative Final No SARS-CoV2 Coronavirus RNA detected by PCR (amplified probe).
This express test was developed and its performance characteristics determined by [employer]. It has not been cleared or approved [...] (RT-PCR) test, or a Centers for Disease Control-acceptable equivalent. The test is performed in a high complexity Clinical Laboratory Improvement Amendments-(CLIA) certified laboratory. The test is acceptable for SARS-CoV-2 diagnosis, surveillance, and travel within the [place] and to most countries. Please check with local testing authorities about requirements before travel.

The validation of bronchial specimens, tracheal aspirates, and sputum for this assay was developed and performance characteristics determined by [employer] [facility]. The validation of alternate specimen types has not been cleared or approved by the U.S. Food and Drug Administration (FDA). It has been determined that such clearance is not necessary. Influenza virus A RNA [Prese nce] in Specimen by ZEHRA with probe detection 01/27/2024 10:00:54 Negative Negative Final No Influenza A RNA detected by PCR (amplified probe) Influenza virus B RNA [Prese nce] in Specimen by ZEH[employer] with probe detection 01/27/2024 10:00:54 Negative Negative Final No Influenza B RNA detected by PCR (amplified probe) Respiratory syncytial virus RNA [Identifier] in Specimen by ZEHRA with probe detection 01/27/2024 10:00:54 Negative Negative Final No Respiratory Syncytial Vir us RNA detected by PCR (amplified probe) Performing Location [facility] - [address] [place] [address]
--- OUTSIDE RECORDS SUMMARY | 2024-02-09 14:28 | External Medical Summary ---
Author Name Unknown Address Unknown Organization K01:[facility] [address] [place] [address] Laboratory Report Ordering Provider Test Date Status HATTIE WOODALL 01/27/2024 10:31:43 Final Observation Date Value Abnormality Reference (Units ) Status Phosphate 01/27/2024 10:31:43 2.8 2.5-4.8 (m g/dL) Final Performing Location [facility] [address] [place] [address]
--- OUTSIDE RECORDS SUMMARY | 2024-02-09 14:28 | External Medical Summary ---
Author Name Unknown Address Unknown Organization [id number] [place] [address] [place] [address] Laboratory Report Ordering Provider Test Date Status CHAGO OBREGON 01/27/2024 10:31:43 Final Observation Date Value Abnormality Reference (Units ) Status MYCODE SPECIMEN-SST 01/27/2024 10:31:43 Freezing of extracted DNA, whole blood and/or serum. Final Performing Location [facility] [place] [address] [place] [address]
--- NOTE | 2024-02-09 15:08 | Hospitalist Progress Note ---
Date of Service February 09, 2024 Assessment & Plan (1) Fall: Plan: 73-year-old female with past medical history significant for atrophy of pancreas, chronic rhinitis, obesity, GERD, degeneration of cervical disc, osteoporosis, iron deficiency anemia, status post bariatric surgery, history of COVID comes because of fall and mid lower back pain. Patient states she fell while going to bathroom yesterday in the morning 3:30 AM States she fell backward. Did not hit her head. No loss of consciousness. But she could not able to get up and she stayed on the floor for 6 hours. Later she could able to slowly crawled through her chair and sat in the chair. She thought the pain will get better but the pain was getting more severe so she came to the ER. CT of the thoracic spine is okay. Requesting for pain medications. Denies any headache. No dizziness. No blurred visions. No earache or runny nose. No sore throat. No cough. No fevers. No chest pain or shortness of breath. Feeling somewhat nauseous. No abdominal pain. Somewhat constipated. No incontinence of bowel or bladder. Sensations okay in lower extremity. Hemodynamics are okay. Fall Severe back pain likely musculoskeletal Ambulatory dysfunction --CT Thoracic spine:Degenerative and chronic change, no acute fracture seen. --Lumbar CT pending Pain control Fall precautions PT OT Will consider ortho spine evaluation if needed GERD Continue PPI Morbid Obesity BMI 42 DVT Px Lovenox SQ Code Status Full code Admission and Anticipated Discharge Date Admission Date: February 09, 2024 Subjective Patient is seen and examined at bedside States having back pain even with minimal movement Reports associated nausea Denies any vomiting, chest pain, dyspnea, dizziness Discussed with patient's family at bedside No other complaints Review of Systems Review of Systems: All systems reviewed & are unremarkable except as noted in Subjective Physical Exam Physical Exam: Physical Exam: Vitals signs as noted above General Appearance:Obese, no apparent distress Head: normocephalic, Atraumatic Eyes: normal inspection, EOMI Neck: supple, Trachea midline Respiratory/Chest: Normal breath sounds, CTA, No accessory muscle use Cardiovascular: S1, S2, No murmur Abdomen/GI:Soft, Non tender, Bowel sounds present Spine: tender Extremities/Musculoskeletal:normal inspection, no edema Neurologic/Psych:AAOX3, grossly no focal neurological deficits Skin: normal color, warm Results & Data Results & Data Vital Signs (Past 12 Hours) Vital Signs Temp Pulse Pulse Pulse Resp BP BP 02/09/24 10:07 36.6 C 99 H 18 02/09/24 10:07 36.6 C 99 H 20 02/09/24 10:07 36.7 C 79 16 156/61 H 02/09/24 09:50 97 H 18 158/99 H 02/09/24 07:24 90 18 154/75 H 02/09/24 06:43 105 H 19 105/76 02/09/24 05:02 103 H 02/09/24 04:52 36.6 C 101 H 20 208/90 H BP Pulse Ox O2 Del Method 02/09/24 10:07 162/70 H 95 Room Air 02/09/24 10:07 162/70 H 96 Room Air 02/09/24 10:07 98 Room Air 02/09/24 09:50 97 Room Air 02/09/24 07:24 99 Room Air 02/09/24 06:43 98 Room Air 02/09/24 05:02 02/09/24 04:52 100 Room Air Laboratory Results Short CBC 02/09/24 Range/Units 05:49 WBC 6.91 (4.8-10.8) K/ul Hgb 12.5 (12.0-16.0) g/dl Hct 37.6 (37.0-47.0) % Plt Count 237 (130-400) K/uL BMP 02/09/24 05:49 Sodium 130 L Potassium 4.8 Chloride 98 Carbon Dioxide 23 BUN 18 Creatinine 0.92 Glucose 110 H Calcium 8.7 Cardiac Enzymes 02/09/24 Range/Units 05:49 Total Creatine Kinase 153 (26-192) U/L Liver Function 02/09/24 Range/Units 05:49 Total Bilirubin 0.7 (0.2-1.0) mg/dl AST 33 (13-39) U/L ALT 25 (7-52) U/L Alkaline Phosphatase 76 (34-104) U/L Albumin 3.8 (3.4-5.0) gm/dl
--- NOTE | 2024-02-09 15:21 | CT Scan Report ---
CT lumbar spine wo con CLINICAL HISTORY: Back Pain TECHNIQUE: Multidetector row helical CT of the lumbar spine was performed without administration of i ntravenous contrast. Coronal and sagittal reformations were obtained. Automated dose lowering techniq ues and/or adjustment according to patient size were utilized for this exam. CT DOSE: 1466.4 mGy.cm Comparison: Comparison is made to MRI lumbar spine 06/26/2011 FINDINGS: For counting purposes, the last complete intervertebral disc space is considered L5-S1. There is a fracture of the left transverse process of L2. Impression deformity of L2 is unchanged. Mi nimal degenerative changes are seen. Vertebral body alignment is within normal limits. Surrounding so ft tissues are unremarkable. IMPRESSION: Age-indeterminate fracture of the left transverse process of L2. Correlation with point tenderness is recommended to exclude acute fracture. ACT 112: Negative or not required by law. Electronically signed by: Nam Sheets M.D. 02/09/2024 3:20 PM
[2024-02-10 05:58] LABS: Basophils # (auto) 0.04 K/uL (0.00-0.20); Basophils % (auto) 0.7 %; Eosinophils # (auto) 0.02 K/uL (0.00-0.50); Eosinophils % (auto) 0.3 %; Hematocrit (blood only) 33.3 % (37.0-47.0); Hemoglobin 10.8 g/dl (12.0-16.0); Immature Granulocytes # (auto) 0.01 K/uL (0.01-0.20); Immature Granulocytes % (auto) 0.2 %; Lymphocytes # (auto) 2.09 K/uL (1.20-3.40); Lymphocytes % (auto) 35.2 %; Mean Corpuscular Hemoglobin 30.7 pg (25.0-34.0); Mean Corpuscular Hgb Conc 32.4 g/dL (32.0-36.0); Mean Corpuscular Volume 94.6 fL (80.0-100.0); Mean Platelet Volume 10.1 fL (9.4-12.4); Monocytes # (auto) 0.69 K/uL (0.11-0.59); Monocytes % (auto) 11.6 %; Neutrophils # (auto) 3.08 K/uL (1.40-6.50); Platelet Count 199 K/uL (130-400); RDW Coefficient of Variation 13.9 % (11.5-14.5); RDW Standard Deviation 47.9 fL (36.4-46.3); Red Blood Count 3.52 M/uL (4.20-5.40); White Blood Count 5.93 K/ul (4.8-10.8)
[2024-02-10 06:13] LABS: BUN Creatinine Ratio 13.8 (10-20); Calcium 8.6 mg/dl (8.6-10.3); Creatinine Clr Calc Pharmacy 78.3 ml/min; Est GFR (African American) 77.7 ml/min; Magnesium 1.8 mg/dl (1.7-2.4); Potassium 4.2 mmol/L (3.5-5.1)
[2024-02-10] MEDS: PANTOprazole 40 MG TAB PO SCH (10:02)
--- NOTE | 2024-02-10 12:12 | Orthopedic Consultation ---
Date of Consultation February 10, 2024 Assessment & Plan (1) Intractable back pain: CAT scan lumbar spine does demonstrate an L2 transverse process fracture on the left. This is undoubtedly related to her fall and contributing to the source of her back pain. Had long discussion with this patient regarding her diagnosis and that these heal typically very well on their own over the course of a few weeks. She is to undergo physical therapy light activity only. She should not lift more than 5 pounds. She is not amenable to bracing. History of Present Illness Reason for Consultation: Back pain Attending Physician: Martín Armando MD History of Present Illness This is a very pleasant 73-year-old female who presents with axial back pain after a fall in her bathroom. She states this morning her pain is across the thoracolumbar junction. She has no leg pain numbness or tingling. Allergies Allergy/AdvReac Type Severity Reaction Status Date / Time aspirin AdvReac Unknown AVOID DUE Verified 12/26/18 08:10 TO GASTRIC BYPASS NSAIDS (Non-Steroidal AdvReac Unknown AVOID DUE Verified 12/26/18 08:10 Anti-Inflamma TO GASTRIC BYPASS Home Medications Medication Instructions Recorded Confirmed Type omeprazole 40 mg capsule,delayed 40 mg PO DAILY 02/09/24 02/09/24 History release oxycodone-acetaminophen 7.5 mg-325 1 tab PO Q6H PRN Pain, Severe 02/09/24 History mg tablet valacyclovir 500 mg tablet 500 mg PO DAILY 02/09/24 02/09/24 History Patient History Medical History Obesity (BMI 30-39.9) History of radius fracture CASTED Hx of compression fracture of spine 2010 NO SURGERY JUST REST Chronic back pain Osteoarthritis IBS (irritable bowel syndrome) Hx of pancreatitis 08/2018 Heart disease Surgical History History of esophagogastroduodenoscopy (EGD) History of colonoscopy History of tonsillectomy and adenoidectomy Hx of section History of cochlear implant LEFT EAR History of endoscopic sinus surgery Hx of rotator cuff surgery RIGHT X 3 Hx of hernia repair VENTRAL HERNIA REPAIR S/P gastric bypass Social History Smoking Status: Never smoker Second Hand Exposure: No; Do You Dip or Chew Tobacco: No; Tobacco Cessation Education Requested by Patient: No Hx Alcohol Use: No Hx Substance Use: Yes Last Used Substance: Days (ago) Substance Use Type Other:: Vodka Preferred Language: Welsh Communication Ability: Effective Cardiographer Required: No Beliefs That Will Affect Care: None and Orthodox Current Living Situation: Alone Current Living Situation Comment: patient lives independently at home, mobile home with 2-3 steps to door Other Information That Helps Us Care for You: No Feels Safe at Home: No Is there a partner from a previous relationship who is making you feel unsafe now?: No Any Concerns about Your Family Situation: No Would You Like to Speak to Someone About Your Situation: No Safety Concerns: Feels Safe At This Time Assistive Devices: Cane Physical Exam Physical Exam: On exam she is sitting up in bed. She is cooperative with exam. Good strength testing. Sensory intact. Results & Data Vital Signs (Past 12 Hours) Vital Signs Temp Pulse Resp BP O2 Del Method 02/10/24 08:03 36.6 C 75 14 160/95 H Room Air
[2024-02-10] MEDS: BACLOFEN 10 MG TAB PO PRN (12:46)
--- NOTE | 2024-02-10 16:18 | Hospitalist Progress Note ---
Date of Service February 10, 2024 Assessment & Plan (1) Fall: Plan: 73-year-old female with past medical history significant for atrophy of pancreas, chronic rhinitis, obesity, GERD, degeneration of cervical disc, osteoporosis, iron deficiency anemia, status post bariatric surgery, history of COVID comes because of fall and mid lower back pain. Patient states she fell while going to bathroom yesterday in the morning 3:30 AM States she fell backward. Did not hit her head. No loss of consciousness. But she could not able to get up and she stayed on the floor for 6 hours. Later she could able to slowly crawled through her chair and sat in the chair. She thought the pain will get better but the pain was getting more severe so she came to the ER. CT of the thoracic spine is okay. Requesting for pain medications. Denies any headache. No dizziness. No blurred visions. No earache or runny nose. No sore throat. No cough. No fevers. No chest pain or shortness of breath. Feeling somewhat nauseous. No abdominal pain. Somewhat constipated. No incontinence of bowel or bladder. Sensations okay in lower extremity. Hemodynamics are okay. Fall Lumbar to transverse process fracture--POA Intractable back pain secondary to above Ambulatory dysfunction --CT Thoracic spine:Degenerative and chronic change, no acute fracture seen. --Lumbar CT:Age-indeterminate fracture of the left transverse process of L2. Correlation with point tenderness is recommended to exclude acute fracture. Pain control Fall precautions Continue PT OT Conservative management for now Appreciate orthopedics input Not amenable to bracing Plan to discharge once pain is controlled GERD Continue PPI Morbid Obesity BMI 42 DVT Px Lovenox SQ Code Status Full code Admission and Anticipated Discharge Date Admission Date: February 10, 2024 Subjective Patient is seen and examined at bedside Persistent back pain No other complaints Denies any chest pain, dyspnea, dizziness Review of Systems Review of Systems: All systems reviewed & are unremarkable except as noted in Subjective Physical Exam Physical Exam: Physical Exam: Vitals signs as noted above General Appearance:Obese, no apparent distress Head: normocephalic, Atraumatic Eyes: normal inspection, EOMI Neck: supple, Trachea midline Respiratory/Chest: Normal breath sounds, CTA, No accessory muscle use Cardiovascular: S1, S2, No murmur Abdomen/GI:Soft, Non tender, Bowel sounds present Spine: tender Extremities/Musculoskeletal:normal inspection, no edema Neurologic/Psych:AAOX3, grossly no focal neurological deficits Skin: normal color, warm Results & Data Results & Data Vital Signs (Past 12 Hours) Vital Signs Temp Pulse Resp BP Pulse Ox O2 Del Method 02/10/24 14:35 36.7 C 73 16 148/78 H 93 Room Air 02/10/24 08:03 36.6 C 75 14 160/95 H Room Air Laboratory Results Short CBC 02/10/24 Range/Units 05:34 WBC 5.93 (4.8-10.8) K/ul Hgb 10.8 L (12.0-16.0) g/dl Hct 33.3 L (37.0-47.0) % Plt Count 199 (130-400) K/uL BMP 02/10/24 05:34 Sodium 135 L Potassium 4.2 Chloride 103 Carbon Dioxide 26 BUN 12 Creatinine 0.87 Glucose 100 H Calcium 8.6
[2024-02-11 07:15] LABS: Hematocrit (blood only) 33.4 % (37.0-47.0); Mean Corpuscular Hemoglobin 30.8 pg (25.0-34.0); Mean Corpuscular Hgb Conc 32.9 g/dL (32.0-36.0); Mean Corpuscular Volume 93.6 fL (80.0-100.0); Mean Platelet Volume 10.3 fL (9.4-12.4); Platelet Count 207 K/uL (130-400); RDW Coefficient of Variation 13.8 % (11.5-14.5); RDW Standard Deviation 47.3 fL (36.4-46.3); Red Blood Count 3.57 M/uL (4.20-5.40); White Blood Count 5.66 K/ul (4.8-10.8)
[2024-02-11 07:29] LABS: Calcium 9.2 mg/dl (8.6-10.3); Creatinine Clr Calc Pharmacy 73.2 ml/min; Est GFR (African American) 71.7 ml/min; Est GFR (Non-African American) 61.8 ml/min; Potassium 4.5 mmol/L (3.5-5.1)
[2024-02-11] MEDS: PROMETHAZINE HCL 6.25 MG in SODIUM CHLORIDE 0.9% 50 ML IV STA (08:36)
[2024-02-11] MEDS: POLYETHYLENE (MIRALAX) 17 GM PACK PO PRN (12:15)
--- NOTE | 2024-02-11 15:09 | Hospitalist Progress Note ---
Date of Service February 11, 2024 Assessment & Plan (1) Fall: Plan: 73-year-old female with past medical history significant for atrophy of pancreas, chronic rhinitis, obesity, GERD, degeneration of cervical disc, osteoporosis, iron deficiency anemia, status post bariatric surgery, history of COVID comes because of fall and mid lower back pain. Fall Lumbar to transverse process fracture--POA Intractable back pain secondary to above Ambulatory dysfunction Patient presents after mechanical fall along with lower back pain. --CT Thoracic spine:Degenerative and chronic change, no acute fracture seen. --Lumbar CT:Age-indeterminate fracture of the left transverse process of L2. Correlation with point tenderness is recommended to exclude acute fracture. Pain control Fall precautions Orthospine was consulted; recommended nonoperative measures. Recommended to undergo physical therapy with light activity only. No lifting more than 5 pounds Pain control Encourage ambulation GERD Continue PPI Morbid Obesity BMI 42 DVT Px Lovenox SQ Code Status Full code Dispositionhospitalize due to mechanical fall resulting in lumbar transverse process fracture. She continues to be hospitalized due to need for IV analgesics. Please note the above document was generated using voice recognition software. It may contain grammatical, syntax or spelling errors. Any formal questions or concerns about the content, text or information contained within the body of this dictation should be directly addressed to the provider for clarification Admission and Anticipated Discharge Date Admission Date: February 10, 2024 Subjective Patient seen and examined at bedside. She reports that she is requiring IV medication for pain control. She reports she has been able to ambulate with help of walker to the bathroom Review of Systems Review of Systems: All systems reviewed & are unremarkable except as noted in Subjective Physical Exam Physical Exam: Constitutional: Alert oriented x 3; not in distress. Respiratory: normal respiratory effort, lungs clear to auscultation, no wheeze, rales, rhonchi. Normal insp/exp effort, no accessory muscle use Cardiovascular: RRR, no murmur, no edema Vessels: no JVD or carotid bruit Chest: normal inspection of chest Abdomen: normal bowel sounds, soft, nontender, no hepatosplenomegaly Musculoskeletal: Tenderness present on lower back. No cyanosis or clubbing, extremities motor strength 5/5 Skin: no rashes, warm and dry normal turgor Neurologic: PERRL, EOMI, accommodation nl, no face palsy, no dysarthria CN's II- XI intact bilaterally and moves all extremities Psychiatric: A+Ox3, euthymic affect Results & Data Results & Data Vital Signs (Past 12 Hours) Vital Signs Temp Pulse Resp BP Pulse Ox O2 Del Method 02/11/24 07:37 36.3 C L 63 18 158/81 H 95 Room Air
[2024-02-11] MEDS: ACETAMINOPHEN 325 MG TAB PO PRN (16:01)
[2024-02-12] MEDS: PROMETHAZINE HCL 12.5 MG in SODIUM CHLORIDE 0.9% 50 ML IV STA (02:58)
[2024-02-12] MEDS: POLYETHYLENE (MIRALAX) 17 GM PACK PO SCH (10:11)
[2024-02-12] MEDS: MAGNESIUM HYDROXIDE SUSP 30 ML UDC PO ONE (10:11)
[2024-02-12] MEDS: PROMETHAZINE HCL 6.25 MG in SODIUM CHLORIDE 0.9% 50 ML IV PRN (10:41)
--- NOTE | 2024-02-12 14:58 | Hospitalist Progress Note ---
Date of Service February 12, 2024 Assessment & Plan (1) Fall: Plan: 73-year-old female with past medical history significant for atrophy of pancreas, chronic rhinitis, obesity, GERD, degeneration of cervical disc, osteoporosis, iron deficiency anemia, status post bariatric surgery, history of COVID comes because of fall and mid lower back pain. Fall Lumbar to transverse process fracture--POA Intractable back pain secondary to above Ambulatory dysfunction Patient presents after mechanical fall along with lower back pain. --CT Thoracic spine:Degenerative and chronic change, no acute fracture seen. --Lumbar CT:Age-indeterminate fracture of the left transverse process of L2. Correlation with point tenderness is recommended to exclude acute fracture. Pain control Fall precautions Orthospine was consulted; recommended nonoperative measures. Recommended to undergo physical therapy with light activity only. No lifting more than 5 pounds Pain control Encourage ambulation GERD Continue PPI Morbid Obesity BMI 42 DVT Px Lovenox SQ Code Status Full code Dispositionhospitalize due to mechanical fall resulting in lumbar transverse process fracture. She continues to be hospitalized due to need for IV analgesics. IV pain medication frequency decreased; prioritize oral analgesics over IV. Please note the above document was generated using voice recognition software. It may contain grammatical, syntax or spelling errors. Any formal questions or concerns about the content, text or information contained within the body of this dictation should be directly addressed to the provider for clarification Admission and Anticipated Discharge Date Admission Date: February 10, 2024 Subjective Patient continues to report lower back pain. She is requiring IV pain meds. Reports constipation. Review of Systems Review of Systems: All systems reviewed & are unremarkable except as noted in Subjective Physical Exam Physical Exam: Constitutional: Alert oriented x 3; not in distress. Respiratory: normal respiratory effort, lungs clear to auscultation, no wheeze, rales, rhonchi. Normal insp/exp effort, no accessory muscle use Cardiovascular: RRR, no murmur, no edema Vessels: no JVD or carotid bruit Chest: normal inspection of chest Abdomen: normal bowel sounds, soft, nontender, no hepatosplenomegaly Musculoskeletal: Tenderness present on lower back. No cyanosis or clubbing, extremities motor strength 5/5 Skin: no rashes, warm and dry normal turgor Neurologic: PERRL, EOMI, accommodation nl, no face palsy, no dysarthria CN's II- XI intact bilaterally and moves all extremities Psychiatric: A+Ox3, euthymic affect
[2024-02-12] MEDS: bisacodyL 10 MG SUPP PR STA (15:26)
[2024-02-12] MEDS: HYDROmorphone INJ 0.5 MG/0.5 ML SYR IV PRN (15:29)
[2024-02-13] MEDS: tiZANidine HCL 4 MG TABLET PO SCH (09:51)
--- NOTE | 2024-02-13 11:37 | Hospitalist Progress Note ---
Date of Service February 13, 2024 Assessment & Plan (1) Fall: Plan: 73-year-old female with past medical history significant for atrophy of pancreas, chronic rhinitis, obesity, GERD, degeneration of cervical disc, osteoporosis, iron deficiency anemia, status post bariatric surgery, history of COVID comes because of fall and mid lower back pain. Fall Lumbar to transverse process fracture--POA Intractable back pain secondary to above Ambulatory dysfunction Patient presents after mechanical fall along with lower back pain. --CT Thoracic spine:Degenerative and chronic change, no acute fracture seen. --Lumbar CT:Age-indeterminate fracture of the left transverse process of L2. Correlation with point tenderness is recommended to exclude acute fracture. Pain control Fall precautions Orthospine was consulted; recommended nonoperative measures. Recommended to undergo physical therapy with light activity only. No lifting more than 5 pounds Pain control; prioritize oral analgesic over IV Will change baclofen to Zanaflex for muscle spasm. Encourage ambulation Prescription for rolling walker given to case management. GERD Continue PPI Morbid Obesity BMI 42 DVT Px Lovenox SQ Code Status Full code Dispositionhospitalize due to mechanical fall resulting in lumbar transverse process fracture. She continues to be hospitalized due to need for IV analgesics. IV pain medication frequency decreased; prioritize oral analgesics over IV. Please note the above document was generated using voice recognition software. It may contain grammatical, syntax or spelling errors. Any formal questions or concerns about the content, text or information contained within the body of this dictation should be directly addressed to the provider for clarification Admission and Anticipated Discharge Date Admission Date: February 10, 2024 Subjective Patient continues to report back pain and spasm. She reports that she is moving with a walker well. No significant events overnight Had a bowel movement overnight Review of Systems Review of Systems: All systems reviewed & are unremarkable except as noted in Subjective Physical Exam Physical Exam: Constitutional: Alert oriented x 3; not in distress. Respiratory: normal respiratory effort, lungs clear to auscultation, no wheeze, rales, rhonchi. Normal insp/exp effort, no accessory muscle use Cardiovascular: RRR, no murmur, no edema Vessels: no JVD or carotid bruit Chest: normal inspection of chest Abdomen: normal bowel sounds, soft, nontender, no hepatosplenomegaly Musculoskeletal: Tenderness present on lower back. No cyanosis or clubbing, extremities motor strength 5/5 Skin: no rashes, warm and dry normal turgor Neurologic: PERRL, EOMI, accommodation nl, no face palsy, no dysarthria CN's II- XI intact bilaterally and moves all extremities Psychiatric: A+Ox3, euthymic affect Results & Data Results & Data Vital Signs (Past 12 Hours) Vital Signs Temp Pulse Resp BP Pulse Ox O2 Del Method 02/13/24 07:31 37.3 C 74 16 112/68 96 Room Air
[2024-02-14] MEDS: METHOCARBAMOL 750 MG TABLET PO SCH (11:27)
--- NOTE | 2024-02-14 13:49 | Hospitalist Progress Note ---
Date of Service February 14, 2024 Assessment & Plan (1) Fall: Plan: 73-year-old female with past medical history significant for atrophy of pancreas, chronic rhinitis, obesity, GERD, degeneration of cervical disc, osteoporosis, iron deficiency anemia, status post bariatric surgery, history of COVID comes because of fall and mid lower back pain. Fall Lumbar to transverse process fracture--POA Intractable back pain secondary to above Ambulatory dysfunction Patient presents after mechanical fall along with lower back pain. --CT Thoracic spine:Degenerative and chronic change, no acute fracture seen. --Lumbar CT:Age-indeterminate fracture of the left transverse process of L2. Correlation with point tenderness is recommended to exclude acute fracture. Pain control Fall precautions Orthospine was consulted; recommended nonoperative measures. Recommended to undergo physical therapy with light activity only. No lifting more than 5 pounds Pain control; prioritize oral analgesic over IV Change to Skelaxin, will schedule APAP, PRN Oxy Encourage ambulation Prescription for rolling walker given to case management Working with PT She doesn't feel comfortable going home today due to pain as it is causing significant nausea consult pain management for assistance in pain control GERD Continue PPI Morbid Obesity BMI 42 DVT Px Lovenox SQ Code Status Full code Dispositionhospitalize due to mechanical fall resulting in lumbar transverse process fracture. She continues to be hospitalized due significant pain. Will consult pain management for further assistance. Consider re eval by ortho spine if continues, PT currently recommends return home Please note the above document was generated using voice recognition software. It may contain grammatical, syntax or spelling errors. Any formal questions or concerns about the content, text or information contained within the body of this dictation should be directly addressed to the provider for clarification Admission and Anticipated Discharge Date Admission Date: February 10, 2024 Supervising Physician Co-Signing Physician Notes Patient seen and examined independently. Discussed with above provider. Patient continues to endorse significant pain; requiring IV pain meds She reports that Zanaflex has not helped her; will try methocarbamol p.o. 4 times daily Will also consult pain management given severe consistent pain. I have reviewed the advanced practitioner's documentation, and I agree with, and take responsibility for the plan of care I spent a total of 20 minutes coordinating, documenting, and providing care for this patient excluding time spent in the performance of separately billed services. All of the aforementioned completed while collaborating with the andrew shine advanced practitioner for a full treatment plan Subjective Patient was seen and examined in 356. Follow-up of back pain. She continues to complain of significant low back pain. She was up and ambulating with therapy and this was extremely painful for her. She feels current pain regimen is not helping. She describes pain is across her bilateral low back. Pain is worse with movement. She is unable to get comfortable in the bed. She denies any radiation of pain or numbness or tingling. She is hopeful to improve her symptoms to be able to attend [employer] games at [facility]. She denies fever, chills, sweats, lightheadedness, dizziness, chest pain, shortness of breath, nausea, vomiting. She states she is moving her bowels despite pain medications. Review of Systems Review of Systems: All systems reviewed & are unremarkable except as noted in HPI & below Physical Exam Physical Exam: Gen: WD/WN, NAD, A&O x3 HEENT: Normocephalic, atraumatic, conjunctivae moist, sclerae anicteric, mucous membranes moist. Lung: Clear to Auscultation bilaterally, no wheezes/rales/rhonchi Heart: Regular rate, regular rhythm, no murmurs, rubs, or gallops Abdomen: obese Soft, NT, ND +BS x 4 Extremities: No edema MSK: lower lumbar discomfort paraspinal musculature Skin: Warm, no rash, negative turgor. Results & Data Results & Data Vital Signs (Past 12 Hours) Vital Signs Temp Pulse Resp BP Pulse Ox O2 Del Method 02/14/24 07:23 36.4 C L 59 L 16 139/75 95 Room Air Medications Administered Current Inpatient Medications Acetaminophen (Acetaminophen 325 Mg Tab) 650 mg PO Q4H PRN PRN Reason: pain/fever Stop: 03/10/24 10:06 Last Admin: 02/14/24 11:28 Dose: 650 mg Enoxaparin Sodium (Enoxaparin Inj 40 Mg/0.4 Ml Syr) 40 mg SQ DAILY DIANA Stop: 03/10/24 10:29 Last Admin: 02/14/24 07:48 Dose: 40 mg Hydromorphone HCl (Hydromorphone Inj 0.5 Mg/0.5 Ml Syr) 0.5 mg IV Q8H PRN PRN Reason: Severe Pain (Scale 7, 8, 9,10) Stop: 02/23/24 10:06 Last Admin: 02/14/24 05:26 Dose: 0.5 mg Promethazine HCl 6.25 mg/ (Sodium Chloride) 50.25 mls @ 201 mls/hr IV Q6H PRN PRN Reason: Nausea And Vomiting Stop: 03/13/24 10:02 Last Infusion: 02/14/24 09:56 Dose: Infused Methocarbamol (Methocarbamol 750 Mg Tablet) 750 mg PO QID [facility] Stop: 03/15/24 10:59 Last Admin: 02/14/24 11:27 Dose: 750 mg Multivitamins/Minerals (Cerovite Adv Formula Tab) 1 tab PO QAM [facility] Stop: 03/10/24 08:59 Last Admin: 02/14/24 07:49 Dose: 1 tab Oxycodone/Acetaminophen (Oxycodone/Apap 7.5/325mg Tab) 1 tab PO Q6H PRN PRN Reason: Pain, Severe Stop: 02/23/24 10:06 Last Admin: 02/14/24 07:49 Dose: 1 tab Pantoprazole Sodium (Pantoprazole 40 Mg Tab) 40 mg PO DAILY [facility] Stop: 03/11/24 08:59 Last Admin: 02/14/24 07:50 Dose: 40 mg Polyethylene Glycol (Polyethylene (Miralax) 17 Gm Pack) 17 gm PO DAILY PRN PRN Reason: Constipation Stop: 03/10/24 10:06 Last Admin: 02/11/24 12:15 Dose: 17 gm Polyethylene Glycol (Polyethylene (Miralax) 17 Gm Pack) 17 gm PO DAILY [facility] Stop: 03/13/24 09:29 Last Admin: 02/14/24 07:51 Dose: 17 gm Trolamine Salicylate (Trolamine Salicylate 10% Crm 255 Appln/85 Gm Tube) 1 appln EXT TID [facility] Stop: 03/15/24 13:59 Valacyclovir HCl (Valacyclovir Hcl 500 Mg Tablet) 500 mg PO DAILY [facility] Stop: 03/10/24 10:29 Last Admin: 02/14/24 07:50 Dose: 500 mg
[2024-02-14] MEDS: TROLAMINE SALICYLATE 10% CRM 255 APPLN/85 GM TUBE EXT SCH (13:58)
[2024-02-14] MEDS ORDERED: tiZANidine HCL 4 MG TABLET PO SCH (14:00)
[2024-02-14] MEDS: ACETAMINOPHEN 500 MG TAB PO SCH (14:09)
--- NOTE | 2024-02-14 15:37 | Pain Management Consultation ---
Date of Consultation February 14, 2024 Assessment & Plan (1) Fall: Encounter type: sequela Qualified Code(s): W19.XXXS - Unspecified fall, sequela (2) Intractable back pain: Plan Patient does have a left L2 transverse process fracture status post fall. She does continue to report a deep aching and intermittent sharp pain depending on her movement. Continue Robaxin 750mg 4 times daily if needed for myofascial spasm. Could consider switching to baclofen if needed. Patient is reporting mild pain relief with the use of Percocet 7.5/325 mg every 6 hours. The order was recently changed to oxycodone 7.5 mg every 4 hours. Could titrate to 10mg if needed. She is able to take Tylenol if needed for breakthrough pain. I have asked the patient to limit use of IV Dilaudid in preparation for discharge to home. LSO back brace would provide little to no benefit. There is nothing to offer interventionally. Patient is in agreement with the plan. Will sign off on the patient. Please contact with any questions or concerns. History of Present Illness Attending Physician: Yrn Camargo MD History of Present Illness This is a 73-year-old female that is being seen in consultation for acute low back pain. She fell on 02/08/2024 at her home and sustained a left L2 transverse process fracture and has been admitted for pain control. She describes a constant aching and intermittent sharp jabbing pain along the left mid lumbar region. Pain is aggravated with positional changes and alleviated with sitting and lying supine. She is receiving Robaxin 750 mg 4 times daily and Percocet 7.5/325 mg every 6 hours. She has used IV Dilaudid 0.5 mg x 3 on 02/12 and x 2 o n 02/13 with moderate improvement. No radicular symptoms. Patient is to limit lifting. Dr. Rosas did offer an LSO back brace the patient defers. Allergies Allergy/AdvReac Type Severity Reaction Status Date / Time aspirin AdvReac Unknown AVOID DUE Verified 12/26/18 08:10 TO GASTRIC BYPASS NSAIDS (Non-Steroidal AdvReac Unknown AVOID DUE Verified 12/26/18 08:10 Anti-Inflamma TO GASTRIC BYPASS Home Medications Medication Instructions Recorded Confirmed Type omeprazole 40 mg capsule,delayed 40 mg PO DAILY 02/09/24 02/09/24 History release oxycodone-acetaminophen 7.5 mg-325 1 tab PO Q6H PRN Pain, Severe 02/09/24 02/09/24 History mg tablet valacyclovir 500 mg tablet 500 mg PO DAILY 02/09/24 02/09/24 History Patient History Medical History Obesity (BMI 30-39.9) History of radius fracture CASTED Hx of compression fracture of spine 2010 NO SURGERY JUST REST Chronic back pain Osteoarthritis IBS (irritable bowel syndrome) Hx of pancreatitis 08/2018 Heart disease Surgical History History of esophagogastroduodenoscopy (EGD) History of colonoscopy History of tonsillectomy and adenoidectomy Hx of section History of cochlear implant LEFT EAR History of endoscopic sinus surgery Hx of rotator cuff surgery RIGHT X 3 Hx of hernia repair VENTRAL HERNIA REPAIR S/P gastric bypass Social History Smoking Status: Never smoker Second Hand Exposure: No; Do You Dip or Chew Tobacco: No; Tobacco Cessation Education Requested by Patient: No Hx Alcohol Use: No Hx Substance Use: Yes Last Used Substance: Days (ago) Substance Use Type Other:: Vodka Preferred Language: Upper Sorbian Communication Ability: Effective Pet House Sitter Required: No Beliefs That Will Affect Care: None and Sikhism Current Living Situation: Alone Current Living Situation Comment: patient lives independently at home, mobile home with 2-3 steps to door Other Information That Helps Us Care for You: No Feels Safe at Home: No Is there a partner from a previous relationship who is making you feel unsafe now?: No Any Concerns about Your Family Situation: No Would You Like to Speak to Someone About Your Situation: No Safety Concerns: Feels Safe At This Time Assistive Devices: Cane Physical Exam Physical Exam: GENERAL: This is a 73 year old female that appears mildly uncomfortable with positional changes. HEAD/FACE: Normocephalic and atraumatic. EYES: No drainage or conjunctival injection. ENT: Nose without bleeding or discharge. Oral mucosa moist. NECK: Full ROM without apparent pain. No swelling or masses noted. RESPIRATORY: Patient with unlabored breathing. No signs of respiratory distress. CHEST/AXILLA: Chest movement symmetrical. No deformities noted. ABDOMEN/GI: No distension BACK: Moderate tenderness along the left upper lumbar region with overlying myofascial spasm. No trigger points noted. No focal midline or SI joint tenderness. SKIN: [place], warm and dry. No rash noted. MS/EXTREMITY: No swelling, no deformities. Moving extremities appropriately. NEURO: Alert and appears oriented. Speech is fluent. Cranial Nerves are grossly intact. PSYCH: Alert, pleasant, affect is calm Results (Pain Clinic) Diagnostic Review CT Findings: CT lumbar spine wo con CLINICAL HISTORY: Back Pain TECHNIQUE: Multidetector row helical CT of the lumbar spine was performed without administration of intravenous contrast. Coronal and sagittal reformations were obtained. Automated dose lowering techniques and/or adjustment according to patient size were utilized for this exam. CT DOSE: 1466.4 mGy.cm Comparison: Comparison is made to MRI lumbar spine 06/26/2011 FINDINGS: For counting purposes, the last complete intervertebral disc space is considered L5-S1. There is a fracture of the left transverse process of L2. Impression deformity of L2 is unchanged. Minimal degenerative changes are seen. Vertebral body alignment is within normal limits. Surrounding soft tissues are unremarkable. IMPRESSION: Age-indeterminate fracture of the left transverse process of L2. Correlation with point tenderness is recommended to exclude acute fracture. ACT 112: Negative or not required by law. Electronically signed by: Nam Sheets M.D. 02/09/2024 3:20 PM
[2024-02-14] MEDS: oxyCODONE HCL IR 5 MG TAB (IMMEDIATE RELEASE) PO PRN (16:50)
[2024-02-15 08:11] LABS: Basophils # (auto) 0.04 K/uL (0.00-0.20); Basophils % (auto) 0.7 %; Eosinophils # (auto) 0.14 K/uL (0.00-0.50); Eosinophils % (auto) 2.5 %; Hematocrit (blood only) 35.8 % (37.0-47.0); Hemoglobin 11.8 g/dl (12.0-16.0); Immature Granulocytes # (auto) 0.02 K/uL (0.01-0.20); Immature Granulocytes % (auto) 0.4 %; Lymphocytes # (auto) 1.84 K/uL (1.20-3.40); Lymphocytes % (auto) 33.4 %; Mean Corpuscular Hemoglobin 30.3 pg (25.0-34.0); Mean Corpuscular Volume 91.8 fL (80.0-100.0); Mean Platelet Volume 10.2 fL (9.4-12.4); Monocytes # (auto) 0.61 K/uL (0.11-0.59); Monocytes % (auto) 11.1 %; Neutrophils # (auto) 2.86 K/uL (1.40-6.50); Neutrophils % (auto) 51.9 %; Platelet Count 218 K/uL (130-400); RDW Coefficient of Variation 13.5 % (11.5-14.5); RDW Standard Deviation 45.4 fL (36.4-46.3); White Blood Count 5.51 K/ul (4.8-10.8)
[2024-02-15 09:03] LABS: BUN Creatinine Ratio 16.5 (10-20); Calcium 9.1 mg/dl (8.6-10.3); Creatinine Clr Calc Pharmacy 70.2 ml/min; Est GFR (African American) 68.1 ml/min; Est GFR (Non-African American) 58.8 ml/min; Potassium 3.9 mmol/L (3.5-5.1)
--- NOTE | 2024-02-15 11:10 | Discharge Summary ---
Discharge Summary Date of Service February 15, 2024 Notes For Next Care Provider Patient admitted after sustaining a fall and diagnosed with a acute left transverse process fracture of L2 vertebrae. Current treatment is nonoperative and pain management is recommended. Currently being managed on 7.5 mg of Percocet as needed as well as methocarbamol. Also using ice and Aspercreme. Medication Changes From Visit Oxycodone 7.5 mgacetaminophen 325 mg take 1 tablet every 4 hours as needed for severe pain. Methocarbamol 750 mg every 6 hours for muscle relaxant. Encouraged to continue using Aspercreme up to 3 times a day as needed for back pain. Continue all the medications as prescribed. Admission HPI Per Admitting Provider 73-year-old female with past medical history significant for atrophy of pancreas, chronic rhinitis, obesity, GERD, degeneration of cervical disc, osteoporosis, iron deficiency anemia, status post bariatric surgery, history of COVID comes because of fall and mid lower back pain. Patient states she fell while going to bathroom yesterday in the morning 3:30 AM States she fell backward. Did not hit her head. No loss of consciousness. But she could not able to get up and she stayed on the floor for 6 hours. Later she could able to slowly crawled through her chair and sat in the chair. She thought the pain will get better but the pain was getting more severe so she came to the ER. CT of the thoracic spine is okay. Requesting for pain medications. Denies any headache. No dizziness. No blurred visions. No earache or runny nose. No sore throat. No cough. No fevers. No chest pain or shortness of breath. Feeling somewhat nauseous. No abdominal pain. Somewhat constipated. No incontinence of bowel or bladder. Sensations okay in lower extremity. Hemodynamics are okay. Past medical history. As mentioned above. Past surgical history. . Colonoscopy. EGD. EGD with endoscopic ultrasound. Gastric bypass surgery. Incisional hernia repair. Laparoscopic cholecystectomy. Ligation of oviducts. Repair of ruptured rotator cuff right- side. Sinus surgery. Social history. No smoking. No alcohol use. No drug use. Family history. Mother has arthritis. Diabetes. CABG. Hyperlipidemia. Hypertension. Obesity. Father had prostate cancer. Small intestine cancer. Hyperlipidemia. Hypertension. Son has gout. Migraines. Sister has asthma. Admission Exam Per Admitting Provider General- Not in distress Head- atraumatic Eyes- PERRL. ENT- oropharynx clear Neck- supple, no JVD. Lungs- clear to auscultation no wheezing or crackles. Heart- regular rhythm; no murmur, no gallop. Abdomen- normal bowel sounds, soft, nontender, no distension. Extremities- no pretibial edema, no erythema seen. Musculoskeletal b/l SLR test negative. Neuro- alert, oriented ; PERRL, no facial palsy; no dysarthria; moves extremities. Skin- warm & dry Principal Dx & Hospital Course #1 = Principal Diagnosis (1) Lumbar transverse process fracture: (2) Intractable back pain: (3) Fall: Plan 73-year-old female with past medical history significant for atrophy of pancreas, chronic rhinitis, obesity, GERD, degeneration of cervical disc, osteoporosis, iron deficiency anemia, status post bariatric surgery, history of COVID comes because of fall and mid lower back pain. Fall Lumbar to transverse process fracture--POA Intractable back pain secondary to above Ambulatory dysfunction Patient presents after mechanical fall along with lower back pain. --CT Thoracic spine:Degenerative and chronic change, no acute fracture seen. --Lumbar CT:Age-indeterminate fracture of the left transverse process of L2. Correlation with point tenderness is recommended to exclude acute fracture. Pain control Fall precautions Orthospine was consulted; recommended nonoperative measures. Recommended to undergo physical therapy with light activity only. No lifting more than 5 pounds Pain control; prioritize oral analgesic over IV Change to Skelaxin, PRN percocet Encourage ambulation Prescription for rolling walker given to case management Discharge home with [facility] Home health GERD Continue PPI Morbid Obesity BMI 42 Dispo: D/C to home today with close PCP Follow up Code Status Full code Discharge Exam Gen: WD/WN, sitting up in bed, NAD, A&O x3 HEENT: Normocephalic, atraumatic, conjunctivae moist, sclerae anicteric, mucous membranes moist. Lung: Clear to Auscultation bilaterally, no wheezes/rales/rhonchi Heart: Regular rate, regular rhythm, no murmurs, rubs, or gallops Abdomen: Soft, NT, ND +BS x 4 Extremities: No edema Skin: Warm, no rash, negative turgor. Updated Medication List Medication Instructions Recorded Confirmed Type omeprazole 40 mg capsule,delayed 40 mg PO DAILY 02/09/24 02/09/24 History release valacyclovir 500 mg tablet 500 mg PO DAILY 02/09/24 02/09/24 History methocarbamol 750 mg tablet 750 mg PO QID 7 days #28 tabs 02/15/24 Rx oxycodone-acetaminophen 7.5 mg-325 1 tab PO Q6H PRN Pain, Severe #6 02/15/24 Rx mg tablet tabs trolamine salicylate 10 % topical 1 applic EXT TID #35.4 grams 02/15/24 Rx cream (Myoflex) Hospital Stay Data Consultations 02/09/24 05:44 ED Decision to Admit Stat 02/09/24 15:46 Consult Orthopedic Surgery Routine 02/14/24 10:37 Consult Pain Management Routine Diagnostic Imagining Performed Thoracic Spine CT 02/09/24 05:03 Exam(s): CT T SPINE EXAM: CT Thoracic Spine Without Intravenous Contrast CLINICAL HISTORY: Reason for exam: fall, mid back pain. TECHNIQUE: Axial computed tomography images of the thoracic spine without intravenous contrast. Automated exposure control was utilized for the study. A dose lowering technique was utilized adhering to the principles of ALARA. COMPARISON: No relevant prior studies available. FINDINGS: Vertebrae: There is some accentuated kyphosis present within the thoracic spine. There is mild spondylotic spurring at multiple levels. There is diffuse demineralization. No acute fracture. Discs/spinal canal/neural foramina: No acute findings. No spinal canal stenosis. Soft tissues: Unremarkable. Vasculature: There are vascular calcifications present. Lungs: Some calcified and noncalcified nodules within the inferior right lung on about image #245 and 253 of series 2. Mediastinum: There is small hiatal hernia and postsurgical changes to the stomach/bowel. IMPRESSION: Degenerative and chronic change, no acute fracture seen. Electronically signed by: Moise Wang MD 02/09/24 05:[address] 02/09/24 11:49 CT lumbar spine wo con CLINICAL HISTORY: Back Pain TECHNIQUE: Multidetector row helical CT of the lumbar spine was performed with out administration of intravenous contrast. Coronal and sagittal reformations were obtained. Automated dose lowering techniques and/or adjustment according to patient size were utilized for this exam. CT DOSE: 1466.4 mGy.cm Comparison: Comparison is made to MRI lumbar spine 06/26/2011 FINDINGS: For counting purposes, the last complete intervertebral disc space is considered L5-S1. There is a fracture of the left transverse process of L2. Impression deformity of L2 is unchanged. Minimal degenerative changes are seen. Vertebral body alignment is within normal limits. Surrounding soft tissues are unremarkable. IMPRESSION: Age-indeterminate fracture of the left transverse process of L2. Correlation with point tenderness is recommended to exclude acute fracture. ACT 112: Negative or not required by law. Electronically signed by: Nam Sheets M.D. 02/09/2024 3:20 PM Pending Results Patient Have Any Pending Studies at Discharge: No Discharge Instructions Given to Patient (Per Discharging Provider) MEDICATION CHANGES: Oxycodone 7.5 mgacetaminophen 325 mg take 1 tablet every 4 hours as needed for severe pain. Methocarbamol 750 mg every 6 hours for muscle relaxant. Encouraged to continue using Aspercreme up to 3 times a day as needed for back pain. Continue all the medications as prescribed. SUMMARY OF TEST RESULTS: You were admitted to hospital after sustaining a fall and having low back pain. You were found to have an fracture of the left transverse process of your L2 vertebra. You were seen and evaluated by physical therapy. You are prescribed pain medication and muscle relaxant. It is suspected that it will take up to 6 to 8 weeks for your fracture to heal. RECOMMENDATIONS FOR FOLLOW-UP: Please follow-up with your primary care provider as scheduled. They can prescribe you additional supply of pain medication if needed. Expect that you will have pain for the next 8 weeks. This should gradually improve over time. It is recommended that you take it easy and follow physical therapy recommendations. No lifting more than 5 pounds until cleared by your primary care provider and physical therapy. No driving while taking narcotic pain medications. Encouraged the use of Aspercreme as well as ice as needed to help with pain control. Please continue all medications as prescribed. Please take an [id number] stool softener while using oxycodone as this medication will cause constipation. OTHER INSTRUCTIONS: Seek medical attention if you have: * temperature above 101 * chest pain or trouble breathing * abdominal pain, nausea, vomiting * diarrhea, dark stools or bloody stools * any unanswered questions or concerns Call 911 if symptoms are severe. Please take good care of yourself. It has been a pleasure taking care of you. Please take care of yourself. If you have any questions regarding your recent hospitalization please contact [facility] and request Davy Hardin @ [phone]. Jessie Bobo PA-C Total Time Total Time Spent Total Time Spent (In Minutes): 45 minutes Supervising Physician Co-Signing Physician Notes Patient seen and examined independently. Discussed with above provider. Patient feels comfortable to go home. Pain is well-controlled on current medication Primary care follow-up tomorrow a.m. I have reviewed the advanced practitioner's documentation, and I agree with, and take responsibility for the plan of care I spent a total of 15 minutes coordinating, documenting, and providing care for this patient excluding time spent in the performance of separately billed services. All of the aforementioned completed while collaborating with the assigned advanced practitioner for a full treatment plan
== END 2024-02-15 11:55 | disposition home health service (06) | DRG 552 ==
LOC: 3W 04:48 → ED 04:48 → 3W 09:50 → SUATTDRO 02-10 12:16